=== PATIENT | female | born 1955 | race Caucasian/White ===

== ENCOUNTER 2023-10-21 14:37 | Emergency (ER) | payer OTHER, SELFPAY ==
[2023-10-21 14:39] VITALS: BP 184/97
[2023-10-21 15:07] LABS: % Basophils 0.7 % (0-2); % Eosinophils 1.2 % (0-6); % Immature Granulocytes 0.4 % (0-0.5); % Monocytes 6.5 % (1.7-9.3); % Neutrophils 63.2 % (42.2-75.2); Absolute Basophils 0.1 10^3/uL (0-0.2); Absolute Eosinophils 0.1 10^3/uL (0-0.7); Absolute Lymphocytes 2.3 10^3/uL (1.2-3.4); Absolute Monocytes 0.5 10^3/uL (0.1-0.6); Absolute Neutrophils 5.3 10^3/uL (1.4-6.5); Hematocrit 36.7 % (37.0-47.0); Hemoglobin 12.7 g/dL (12.0-16.0); Mean Corp Hgb Conc. 34.6 g/dL (33.0-37.0); Mean Corpuscular Hgb 31.5 pg (27.0-31.0); Mean Corpuscular Volume 91.1 fL (81.0-99.0); Mean Platelet Volume 9.4 fL (7.4-10.4); Nucleated Red Blood Cells % 0 %; Platelet Count 310 10^3/uL (130-400); Red Blood Cell Count 4.03 10^6/uL (4.20-5.40); Red Cell Dist. Width 13.2 % (11.5-14.5); White Blood Cell Count 8.4 10^3/uL (4.8-10.8)
[2023-10-21 15:27] LABS: ALT (SGPT) 24 U/L (0-35); AST (SGOT) 30 U/L (14-36); Albumin 4.3 g/dl (3.5-5.0); Alkaline Phosphatase 97 U/L (38-126); Blood Urea Nitrogen 21 mg/dl (7-17); Calcium 9.4 mg/dl (8.4-10.2); Carbon Dioxide 25 mmol/L (22-30); Glucose 203 mg/dl (70-99); Total Bilirubin 0.8 mg/dl (0.2-1.3); Total Protein 7.5 g/dl (6.3-8.2); eGFR > 60.00
[2023-10-21 15:30] LABS: Troponin I < 0.012 ng/ml
[2023-10-21 15:38] LABS: Chloride 99 mmol/L (98-107); Sodium 136 mmol/L (135-145)
--- NOTE | 2023-10-21 18:38 | ED.GENMED ---
History of Present Illness
General
Chief Complaint: Chest Pain
Source: patient
Exam Limitations: none
Time Seen by Provider: 10/21/23 17:59
Nursing documentation reviewed up to this point in time: agreed with
Travel History
Have you had any contact with someone who has COVID-19?: No
Do you have any symptoms of coronavirus? Fever > 100 degrees, chills, cough, shortness of breath, sore throat, loss of taste or smell, muscle aches, or headache?: No
History of Present Illness
History of Present Illness:
Patient is a 68-year-old who female with past medical history of hypertension hyperlipidemia [id number] diabetes thyroid issues who was sent here to the ER for evaluation. Patient reports she felt very tired yesterday and went to sleep
early last night at 6:30 PM. She woke at 5:30 AM and around 6 AM today noticed left-sided chest discomfort and felt a little discomfort in her left arm she reports this was not a pain. She had no associated shortness of breath with this. She
denies any injury. She went to her family doctor's office and they told her that her EKG was slightly changed compared to last wrist EKG and they sent her here to the ER.
She has no history of CAD. She was seen by cardiology and had echo in past .
She is currently asymptomatic.
Review of Systems
Review of Systems
Allergies reviewed?: Yes
Other source history: family
All Other Systems: ROS reviewed and negative except as documented in HPI and ROS
Constitutional: Reports no symptoms; Denies fever, fatigue or chills
Respiratory: Reports no symptoms; Denies trouble breathing
Cardiac: Reports chest pain ('discomfort' ); Denies palpitations or syncope
ABD/GI: Reports no symptoms; Denies nausea or vomiting
Musculoskeletal: Reports no symptoms
Skin: Reports no symptoms
Neurological: Reports no symptoms
Psychiatric: Reports no symptoms
Phy Exam
General Physical Exam
General Presentation: no apparent distress
General age: appears stated age
General Skin: warm and dry
General Habitus: normal
General Mental: alert
General Hydration: appears well hydrated
Cardiovascular Exam
Cardiovascular Exam: regular rate/rhythm, no murmur and normal peripheral pulses
Pulmonary Exam
Pulmonary Exam: lungs clear and no respiratory distress
Neurological Exam
Neurological Exam: alert and oriented x3
Musculoskeletal Exam
Musculoskeletal Exam: full ROM
Skin Exam
Skin Exam: normal color and warm/dry
Psychiatric Exam
Psychiatric Exam: normal mood/affect
Scores
Heart Score for Chest Pain Patients
STEMI patient?: Not applicable
Course
Orders/Labs/Results
Orders:
Orders
10/21/23 14:45
Electrocardiogram (*1) Urgent
Reason for Study: Chest Pain
EKG- Treatment ONCE
10/21/23 14:56
Complete Blood Count/With Diff Urgent
Comprehensive Metabolic Panel Urgent
Troponin I Urgent
10/21/23 18:37
CR Chest - 2 Views Urgent
Comment:
Reason For Exam: cp
10/21/23 18:38
Electrocardiogram (*1) Stat
Reason for Study: Other
Other Reason for Exam: chest pain
Cardiac Monitoring- Treatment ONCE
EKG- Treatment ONCE
10/21/23 19:04
Troponin I Urgent
Abnormal Lab Results
10/21/23
14:56
RBC 4.03 L 10^6/uL
(4.20-5.40)
Hct 36.7 L %
(37.0-47.0)
MCH 31.5 H pg
(27.0-31.0)
BUN 21 H mg/dl
(7-17)
Glucose 203 H mg/dl
(70-99)
10/21/23 14:56
10/21/23 14:56
Vital Signs
Initial and Last Documented VS:
Initial Vital Signs
Temp Pulse Resp BP Pulse Ox
98.2 F 94 16 184/97 98
10/21/23 14:39 10/21/23 14:39 10/21/23 14:39 10/21/23 14:39 10/21/23 14:39
Last Documented Vital Signs
Temp Pulse Resp BP Pulse Ox
98.2 F 62 20 147/83 97
10/21/23 14:39 10/21/23 19:03 10/21/23 19:03 10/21/23 19:03 10/21/23 19:03
MDM/Problems Addressed
Differential Diagnosis Includes:
Not limited to CAD, unstable angina, musculoskeletal chest pain
MDM/Problems Addressed:
Patient is a 68-year-old female who presented to the ER for evaluation. She was fatigued yesterday felt mild discomfort to the left chest and left arm today at home not associate with shortness of breath. Patient presents awake alert no acute
distress she has a history of high cholesterol diabetes and hypertension. She presented to the ER awake alert asymptomatic. She was sent initially by her family doctor for questionable EKG change. No acute concerning findings on EKG slight
lateral depression in V5. Patient had 2 cardiac troponins which are negative and remained asymptomatic here in the ER. She is nontoxic well-appearing. She has seen cardiology for echo with history of hypertension in the past that was reviewed and
is unremarkable. Will DC with cardiology follow-up and placed on the chest pain hotline
*Radiology
Radiology exam reviewed: radiology read reviewed
*Pulse Oximetry
Patient hypoxic: no
*EKG
Interpreted by ED Provider?: Yes
Interpretation: abnormal
Comparison EKG: no comparison EKG present
Heart Rate: 75
Rate: normal
Rhythm: sinus
Ischemia: other (Repeat EKG at 1853 no acute findings)
*Critical Care Note
Total Time (30-74mins, 75-104mins- exclusive of procedures): Not Applicable
Data Reviewed
Review of Other/Old Records Reveals: Other (Echo from August 29, 2023 shows normal LV size no regional wall motion ejection fraction 66% no change from 2020)
ED Attending Note
-
Portions of this chart may have been created with voice recognition software.� Occasional wrong word or��sound alike� substitutions may have occurred due to the inherent limitations of voice recognition software.
Discharge Plan
Departure
Patient Disposition: Home (Routine Discharge)
Date of Disposition: 10/21/23
Time of Disposition: 20:08
Patient with high blood pressure during this ER visit?: Yes
Condition: Fair
Covid-19: Not Applicable
Discharge Problem:
Chest pain
Instructions: Chest Pain CBC Follow Up
Prescriptions:
No Action
multivitamin [Daily Multiple] 1 EACH tablet
1 ea PO DAILY
metformin 500 MG tablet
500 mg PO DAILY
simvastatin 10 MG tablet
5 mg PO QPM
aspirin [Aspir-Low] 81 MG tablet,delayed release (DR/EC)
81 mg PO DAILY
levothyroxine 50 MCG tablet
50 mcg PO DAILY
hydrochlorothiazide 25 MG tablet
25 mg PO DAILY
lisinopril 40 MG tablet
40 mg PO QPM
tamoxifen 20 MG tablet
20 mg PO DAILY
omeprazole magnesium [Prilosec OTC] 20 MG tablet,delayed release (DR/EC)
20 mg PO DAILY
omega 4-xdu-kcd-fish oil 1 EACH capsule
1 ea PO BID
Referrals:
Osiris Garcia NP [Family Provider] -
Karrie Torres MD [Active] -
Activity Restrictions/Additional Instructions:
Follow-up with cardiology as discussed. You were placed on the chest pain hotline you should receive a phone call Tuesday or Tuesday however if you do not please give the office a call to schedule an appointment.
Return if any worsening of symptoms
Interventions
Interventions:
*Risk Screen - Suicide Last Done: 10/21/23 14:39
*General Assessment Last Done: 10/21/23 14:39
*Neglect/Abuse Screening Last Done: 10/21/23 14:39
*ED COVID-19 Vaccine History Last Done: 10/21/23 17:38
ED- Cardiac Assessment Last Done: 10/21/23 18:41
[2023-10-21 18:39] VITALS: BP 140/82
[2023-10-21 19:03] VITALS: BP 147/83
[2023-10-21 19:33] LABS: Troponin I < 0.012 ng/ml
== END 2023-10-21 20:17 | disposition home or self-care (01) ==
LOC: EMR 14:37
PROVIDERS: Emergency Medicine; Nurse Practitioner; EMERGENCY PHYSICIAN Emergency Medicine; FAMILY PHYSICIAN Nurse Practitioner Adult Health
DX: R07.89 Other chest pain (principal); R53.83 Other fatigue; I10 Essential (primary) hypertension
CPT/HCPCS: 99285; 71046; 80053; 84484; 85025; 93005

== ENCOUNTER → 2023-11-08 07:11 | Outpatient (REF) | payer OTHER, SELFPAY | LOC: DHCBC/DCA 07:11 | PROVIDERS: ATTENDING PHYSICIAN Nurse Practitioner; FAMILY PHYSICIAN Family Medicine | DX: R07.89 Other chest pain (principal); J44.9 Chronic obstructive pulmonary disease, unspecified; I10 Essential (primary) hypertension | CPT/HCPCS: 78452; 93017; A9500; J2785 ==

== ENCOUNTER 2024-06-08 15:49 | Inpatient (IN) | payer OTHER, SELFPAY ==
[2024-06-08] VITALS (31 sets, daily range): BP systolic 84–122; BP diastolic 53–89; BMI 29.0; BMI 28.4
[2024-06-08 11:50] LABS: % Basophils 0.5 % (0-2); % Eosinophils 0.8 % (0-6); % Immature Granulocytes 0.8 % (0-0.5); % Lymphocytes 14.2 % (20.5-51.1); % Neutrophils 75.7 % (42.2-75.2); Absolute Basophils 0.1 10^3/uL (0-0.2); Absolute Eosinophils 0.1 10^3/uL (0-0.7); Absolute Immature Granulocytes 0.1 10^3/uL (0-0.05); Absolute Lymphocytes 1.9 10^3/uL (1.2-3.4); Absolute Monocytes 1.1 10^3/uL (0.1-0.6); Hemoglobin 12.7 g/dL (12.0-16.0); Mean Corp Hgb Conc. 34.3 g/dL (33.0-37.0); Mean Corpuscular Hgb 30.5 pg (27.0-31.0); Mean Corpuscular Volume 88.7 fL (81.0-99.0); Mean Platelet Volume 9.3 fL (7.4-10.4); Nucleated Red Blood Cells % 0 %; Platelet Count 423 10^3/uL (130-400); Red Blood Cell Count 4.17 10^6/uL (4.20-5.40); Red Cell Dist. Width 13.5 % (11.5-14.5); White Blood Cell Count 13.2 10^3/uL (4.8-10.8)
[2024-06-08 12:05] LABS: ALT (SGPT) 28 U/L (0-35); AST (SGOT) 34 U/L (14-36); Albumin 3.8 g/dl (3.5-5.0); Alkaline Phosphatase 95 U/L (38-126); Blood Urea Nitrogen 30 mg/dl (7-17); Calcium 9.2 mg/dl (8.4-10.2); Carbon Dioxide 26 mmol/L (22-30); Chloride 96 mmol/L (98-107); Glucose 208 mg/dl (70-99); Potassium 3.6 mmol/L (3.5-5.1); Sodium 136 mmol/L (135-145); Total Bilirubin 0.6 mg/dl (0.2-1.3); Total Protein 6.8 g/dl (6.3-8.2); eGFR > 60.00
--- NOTE | 2024-06-08 12:15 | EDRN ---
Pt states she arrives sent by PCP for palpitations. Pt is in rapid A Fib w/ RVR and rate fro 120-150 at this time. Pt states she is feeling chest pain, fatigue (can't keep eyes open), stabbing pain in her back, nausea, SOB, and lightheaded. Pt
states symptoms started Tuesday. Pt is not on blood thinners.
[2024-06-08 12:16] LABS: Troponin I < 0.012 ng/ml
--- NOTE | 2024-06-08 12:30 | EDRN ---
This RN spoke to Dr. Collins at this time about pt's rate and symptoms.
--- NOTE | 2024-06-08 12:46 | ED.GENMED ---
History of Present Illness
General
Chief Complaint: Chest Pain
Source: patient
Exam Limitations: none
Time Seen by Provider: 06/08/24 12:45
Nursing documentation reviewed up to this point in time: agreed with
History of Present Illness
History of Present Illness:
Patient presents to ED secondary to 3-day history of persistent chest pain, back pain, shortness of breath, and nausea sensation. Chest pain and back pain described as stabbing, without any alleviating or exacerbating factors. Denies palpitations.
Patient reports mild dizzy sensation. Denies fever or chills. Denies recent illness. Denies recent change in medications or diet. Denies leg pain or swelling. Denies recent travel. Denies recent surgery. Upon arrival, patient is found to be
in rapid atrial fibrillation, which patient has not had previously. Denies family history of heart disease. Denies family history of blood clots. Of note, patient does state that she does not drink enough water daily.
Review of Systems
Review of Systems
Allergies reviewed?: Yes
All Other Systems: ROS reviewed and negative except as documented in HPI and ROS
Constitutional: Reports no symptoms
EENT: Reports no symptoms
Respiratory: Reports trouble breathing
Cardiac: Reports chest pain
ABD/GI: Reports no symptoms
: Reports no symptoms
Musculoskeletal: Reports no symptoms
Skin: Reports no symptoms
Neurological: Reports dizzy
Phy Exam
Physical Exam
Physical Exam:
Physical Exam
General: mild distress, not acutely ill. afebrile. tachycardic.
Head: nc/at. eomi
Neck: supple. no meningeal signs.
Heart: irregularly irregular, tachycardic, no murmur. equal radial pulses.
Lungs: no acute respiratory distress. clear bilaterally
Abdomen: normal bowel sounds. not tender.
Neuro: alert and oriented. no focal neurological deficits
Skin: no rash
Psychiatric: well kept. interactive and cooperative
Extremities: no edema. no calf tenderness.
Scores
Heart Score for Chest Pain Patients
STEMI patient?: Not applicable
Course
Orders/Labs/Results
Orders:
Orders
06/08/24 11:30
Electrocardiogram (*1) Urgent
Reason for Study: Chest Pain
EKG- Treatment ONCE
06/08/24 11:40
Complete Blood Count/With Diff Urgent
Comprehensive Metabolic Panel Urgent
Magnesium Urgent
TSH Reflex To Free T4 Urgent
Comment: ADD ON
Troponin I Urgent
06/08/24 12:55
Add On- LAB Urgent
Comments:: tube in lab.
Tests Added?: PTT
06/08/24 12:56
0.9% Sodium Chloride 1000 ml [Nss] 1,000 ml IV BOLUS
Diltiazem HCl [Cardizem] 10 mg IV NOW STA
06/08/24 13:00
Diltiazem 125 mg/125 ml Nss [Cardizem] 125 mg in 125 ml IV PER PROTOCOL
Initial dose in mg/hr, then titrate:: 5
Titrate to keep:: Heart rate 80-100 bpm
Titrate by mg/hr:: 5 mg/hr
Frequency of titrations (minutes):: 15
Maximum dose in mg/hr:: 15
06/08/24 13:05
D-Dimer Urgent
06/08/24 15:03
Heparin 5,800 units IV NOW STA
Nursing to Place Non Medication Order As Directed
Physician Order: PTT 6 hours after initial start of Heparin infusion
Above order entered?: Yes
06/08/24 15:15
Heparin 90899 Units/250 ml 25,000 units in 250 ml IV PER PROTOCOL
Weight to be used for heparin protocol in kilograms (kg):: 71.9
Protocol:: DVT/PE
PTT Goal Range to be used:: PTT 73 to 111 seconds
Order type:: Initial
INITIAL Infusion Dose (UNITS/KG/hr) & then follow protocol:: 18 units/kg/hr
Infusion Dose in UNITS/hr & then follow protocol (UNITS/hr):: 1,300
INFUSION RATE in mL/hr & then follow protocol (mL/hr):: 13
For DVT/PE algorithm, re-bolus for low PTT?: Yes
PTT less than or equal to 64 seconds:: Re-bolus 80 units/kg (max 10,000units). Increase by 300 units/hr
(+ 3mL/hr)
PTT 64.1 to 72.9 seconds:: Re-bolus 40 units/kg (max 5,000 units). Increase by 100 units/hr
(+ 1mL/hr)
PTT 73 to 111 seconds:: Target Range. No change in rate.
PTT 111.1 to 130.9 seconds:: Decrease rate by 100 units/hr (- 1 mL/hr)
PTT 131 to 199.9 seconds:: HOLD for 1 hr. Then decrease by 200 units/hr (- 2mL/hr)
PTT greater than or equal to 200 seconds:: HOLD for 2 hrs & Notify Provider. Then decrease by 300 units/hr
(- 3mL/hr)
Lab follow-up:: Each change, PTT q6h until 2 consecutive are therapeutic. Then
PTT daily.
06/08/24 15:16
Heparin 96953 Units/250 ml 25,000 units in 250 ml .ROUTE .STK-MED
06/08/24 15:18
Heparin 5,800 units IV PRN PRN
06/08/24 15:19
Heparin 2,900 units IV PRN PRN
06/08/24 15:39
Admit/Transfer Patient As Directed
Co-Sign Provider:
Level of Care: Inpatient admission
Assign to:: IVU
Physician / Group: alvaro
Diagnosis: afib rvr
Reason for Hospitalization: afib rvr
Expected length of stay greater than two midnights?: Yes
ELOS- Estimated Length of Stay in days: 2
I certify the patient meets the requirements for IP care: Yes
Chest PE Study CT [CT Chest Pe Study] Urgent
Comment:
Reason For Exam: pleurtitic chest pain
PRN Pain Medication Management As Directed
May give lesser potent ordered pain med per pt: Yes
preference::
Protocol:: Medication orders for pain may be administered in a
manner that supports deferring to patient preference
when the pt is:
- Requesting an ordered lesser potent pain medication.
Least to most potent pain medications are defined
as: acetaminophen < NSAID < tramadol < opioids
(morphine, oxycodone, hydromorphone).
- Requesting a lesser dose of the same medication IF
ORDERED.
- Requesting a less intrusive route of administration
if both routes are prescribed by the provider (PO <
IV).
06/08/24 15:40
Code Status As Directed
Resuscitation Status: Full Code
Abnormal Lab Results
06/08/24 06/08/24
11:40 13:05
WBC 13.2 H 10^3/uL
(4.8-10.8)
RBC 4.17 L 10^6/uL
(4.20-5.40)
Plt Count 423 H 10^3/uL
(130-400)
Abs Immat Gran (auto) 0.1 H 10^3/uL
(0-0.05)
Absolute Neuts (auto) 10.0 H 10^3/uL
(1.4-6.5)
Absolute Monos (auto) 1.1 H 10^3/uL
(0.1-0.6)
Immature Gran % 0.8 H %
(0-0.5)
Neutrophils % 75.7 H %
(42.2-75.2)
Lymphocytes % 14.2 L %
(20.5-51.1)
D-Dimer 0.61 H ug/mlFEU
(0.00-0.50)
Chloride 96 L mmol/L
(98-107)
BUN 30 H mg/dl
(7-17)
Glucose 208 H mg/dl
(70-99)
Magnesium 2.4 H mg/dl
(1.6-2.3)
06/08/24 11:40
06/08/24 11:40
Vital Signs
Initial and Last Documented VS:
Initial Vital Signs
Temp Pulse Resp BP Pulse Ox
97.8 F 82 16 121/68 98
06/08/24 11:44 06/08/24 11:44 06/08/24 11:44 06/08/24 11:44 06/08/24 11:44
Last Documented Vital Signs
Temp Pulse Resp BP Pulse Ox
97.8 F 83 32 122/61 93
06/08/24 11:44 06/08/24 18:45 06/08/24 18:45 06/08/24 18:45 06/08/24 18:00
MDM/Problems Addressed
MDM/Problems Addressed:
History, exam, and EKG consistent with new onset rapid atrial fibrillation. Patient started on IV fluids, Cardizem bolus and infusion afterwards, with improved heart rate. After heart rate improvement, patient does report decreased chest pain, but
is still ongoing.
D-dimer reviewed, within normal limits, when age-adjusted.
Discussed with , cardiology. Will patient under hospitalist service on cardizem gtt and heparin protocol.
Critical care statement: A total of 40 minutes of critical care time was provided for this patient. This includes management of unstable vital signs, evaluation of the patient at bedside, reviewing the patient's pertinent medical records, discussion
with consultants, review of old EKGs and review of pertinent medical records. This time with separate from time utilized to perform the aforementioned documented procedures
*EKG
Interpreted by ED Provider?: Yes
EKG Intrepretation Date: 06/08/24
Heart Rate: 135
Rate: tachycardiac
Rhythm: a-fib
[place]: normal axis
*Critical Care Note
Total Time (30-74mins, 75-104mins- exclusive of procedures): 40 min
ED Attending Note
-
Portions of this chart may have been created with voice recognition software.� Occasional wrong word or��sound alike� substitutions may have occurred due to the inherent limitations of voice recognition software.
Discharge Plan
Departure
Patient Disposition: Admit
Date of Disposition: 06/08/24
Time of Disposition: 15:09
Admit to: Telemetry
Presentation/result/management discussed w/ accepting MD/DO: Hospitalist
Discharge Problem:
Atrial fibrillation, rapid, Chest pain
Interventions
Interventions:
*Risk Screen - Suicide Last Done: 06/08/24 11:44
*General Assessment Last Done: 06/08/24 11:44
*Neglect/Abuse Screening Last Done: 06/08/24 11:44
ED- Fall Risk Assessment Last Done: 06/08/24 12:20
*ED COVID-19 Vaccine History Last Done: 06/08/24 12:20
ED- Cardiac Assessment Last Done: 06/08/24 12:20
ED- Pulmonary Assessment Last Done: 06/08/24 12:20
--- NOTE | 2024-06-08 12:50 | EDRN ---
Dr. Hodgson in room w/ pt at this time.
[2024-06-08] MEDS: NSS 1000 IV (13:07)
[2024-06-08 13:29] LABS: Magnesium 2.4 mg/dl (1.6-2.3)
[2024-06-08] MEDS: CARDIZEM 10 MG IV (13:51)
[2024-06-08] MEDS: CARDIZEM 125 IV ×2 (13:52→21:56)
[2024-06-08 14:16] LABS: D-Dimer 0.61 ug/mlFEU (0.00-0.50)
[2024-06-08 14:20] LABS: TSH Reflex To Free T4 1.62 uIU/ml (0.47-4.68)
--- NOTE | 2024-06-08 15:05 | EDRN ---
Dr. Hodgson in room w/pt at this time.
--- NOTE | 2024-06-08 15:25 | EDRN ---
Benita Jefferson w/ cardiology in to see pt.
--- NOTE | 2024-06-08 15:30 | EDRN ---
Dr. Phillips in to see pt.
[2024-06-08] MEDS: HEPARIN 5800 UNITS IV (15:38)
--- NOTE | 2024-06-08 15:38 | CON.CAR ---
Addendum entered and electronically signed by Floyd Dumont MD 06/08/24 17:16:
Patient seen and examined in collaboration with H[employer]ANE OPERATOR; agree with below.
-68-year-old female with hypertension, hyperlipidemia, diabetes, and COPD presenting with chest pain; found to be in atrial fibrillation with RVR.
-The patient's chest pain appears to be atypical (pleuritic).
-Check chest x-ray.
-Trend cardiac enzymes.
-Heparin drip for now; transition to NOAC prior to discharge.
-Continue Cardizem drip.
-Likely repeat echocardiogram as outpatient, if patient converts back to sinus rhythm over the weekend.
-telemetry monitor.
-Will reassess tomorrow.
Original Note:
Consultation
Consultation Request
Date/Time Consultation Requested: 06/08/2024 15:00
Date/Time Consultation Performed: 06/08/2024 15:10
Requesting Provider: Dr. Hodgson
Performing Provider: BERNABE Durán for Dr. Dumont
Reason for Consultation: Atrial fibrillation with rapid ventricular response
Medical History
-
Chief Complaint: Chest pain
History of Present Illness:
Cheryl Bledsoe is a 68-year-old female (formerly known to Dr. Prince, known to her primary lawn care professional Dr. Torres), with hypertension, dyslipidemia, mild mitral regurgitation with posterior mitral leaflet prolapse, mild to moderate tricuspid
regurgitation, NIDDM, COPD, hypothyroidism, and left breast cancer status postlumpectomy who presented to the emergency department with a chief complaint of chest pain. This has been persistent since Tuesday. It is her left-sided chest and
radiates into her back (scapula). She reports associated shortness of breath. It gets worse with deep breaths and coughing. She denied palpitations and the sensation of racing heart. She was found to be in atrial fibrillation with rapid
ventricular response. This is a new diagnosis for her. Cardiology has been consulted for atrial fibrillation management.
Past Medical History
Past Medical History: Cancer (Breast [left]), HTN, Hypercholesterolemia, Hypothyroidism, NIDDM and Valvular Disease (Tricuspid regurgitation, mild mitral regurgitation with posterior leaflet prolapse)
Social History
Tobacco: Non-Smoker
Alcohol: None
Drug: None
Family History
Family History: Reviewed & Not Pertinent
Allergies / Home Medications
Allergy/AdvReac Type Severity Reaction Status Date / Time
sulfamethoxazole Allergy Rash Verified 10/21/23 14:39
[From Bactrim]
trimethoprim [From Bactrim] Allergy Rash Verified 10/21/23 14:39
�Medication �Instructions �Recorded �Confirmed �Type
hydrochlorothiazide 25 mg tablet 25 mg PO DAILY 04/26/14 06/08/24 History
lisinopril 40 mg tablet 40 mg PO QPM 04/26/14 06/08/24 History
metformin 500 mg tablet 500 mg PO DAILY 04/26/14 06/08/24 History
omega 3-nrw-xjw-fish oil 250 1 ea PO BID 04/29/14 06/08/24 History
mg-500 mg-1,000 mg capsule
albuterol sulfate 90 mcg/actuation 2 inh inhalation R Q6HPRN PRN SOB 06/08/24 06/08/24 History
aerosol inhaler
aspirin 81 mg tablet,delayed 81 mg PO DAILY 06/08/24 06/08/24 History
release
budesonide 160 mcg-glycopyr 9 2 inh inhalation R DAILY 06/08/24 06/08/24 History
mcg-formot 4.8 mcg/actuation HFA
inhaler (Breztri Aerosphere)
glipizide 5 mg tablet, extended 5 mg PO DAILY 06/08/24 06/08/24 History
release 24 hr
levothyroxine 75 mcg tablet 75 mcg PO DAILY 06/08/24 06/08/24 History
(Synthroid)
rosuvastatin 5 mg tablet (Crestor) 5 mg PO DAILY 06/08/24 06/08/24 History
therapeutic multivitamin 1 tab PO DAILY 06/08/24 06/08/24 History
Review of Systems
-
History Source: Patient
All other systems: Negative unless noted
Constitutional: Fatigue
EENT: No Symptoms
Respiratory: Cough
Cardiac: Chest Pain
Abdomen/GI: No Symptoms
: No Symptoms
Musculoskeletal: No Symptoms
Skin: No Symptoms
Neurological: No Symptoms
Endocrine: No Symptoms
Hematologic/Lymphatic: No Symptoms
Physical Exam
Vital Signs
Temp Pulse Resp BP Pulse Ox
97.8 F 109 31 113/72 94
06/08/24 11:44 06/08/24 15:00 06/08/24 15:00 06/08/24 15:00 06/08/24 15:00
Lab Results
06/08/24 11:40
06/08/24 11:40
Troponin I < 0.012 ng/ml 06/08/24 11:40
Physical Exam
General: Well Developed, Well Nourished, No Apparent Distress and Comfortable
HEENT: Normocephalic, Anicteric and Moist Mucous Membranes
Respiratory: Clear and Non Labored Respirations
Cardiac: S1/S2 and Irregular Rhythm; Negative Peripheral Edema
Breast: Deferred by me
GI: Soft, Non Tender, Non Distended and Normal Bowel Sounds
Rectal: Deferred by Provider
Genito-urinary: No Costovertebral Tender
Musculoskeletal: No Clubbing, No Cyanosis and No Edema
Skin: Warm and Dry
Neuro: AO x 3
Hematologic/Lymphatic: No Lymphadenopathy
Psych: Calm
Impression / Plan
-
BACKGROUND: 68F hypertension, dyslipidemia, mild mitral regurgitation with posterior mitral leaflet prolapse, mild to moderate tricuspid regurgitation, NIDDM, COPD, hypothyroidism, and left breast cancer status postlumpectomy who presented to the
emergency department with a chief complaint of chest pain. She was found to be in AF with RVR.
Steel Fabricator: Dr. Torres
PLAN:
Atrial fibrillation with RVR, new
-Rate control with diltiazem drip
-Oral Anticoagulation: Start heparin drip, transition to apixaban 5 mg twice daily and stop aspirin
-[id number]: score at least 4 (HTN, Diabetes Mellitus, age 65-74, female gender)
-TSH stable
Chest pain
-Worse with cough, hiccups, and movement
-CT PE ordered by primary
Mild mitral regurgitation with posterior mitral leaflet prolapse
-Stable on two most recent echos
Tricuspid regurgitation, mild to moderate
Hypertension, follow BP while on diltiazem drip
COPD, no acute exacerbation, avoiding beta-edi, per primary
NIDDM, per primary
Hypothyroidism on levothyroxine
Breast cancer status post lumpectomy/XRT
SUBJECTIVE: See ROS
DATA:
Transthoracic echocardiogram, 08/29/2023:
Normal LV size and systolic function with no regional wall motion
abnormalities.
Left ventricular ejection fraction is 66% by volumetric assessment.
No left ventricular hypertrophy.
Normal right ventricular size and function.
Prolapse of the posterior mitral leaflet. Mild mitral regurgitation.
Mild to moderate tricuspid regurgitation.
Estimated pulmonary artery pressure of 38 mmHg, assuming a right atrial
pressure of 3 mmHg.
Compared to prior on February 03, 2021, there is no significant change.
Data Reviewed
-
EKG: Report Reviewed by me (Atrial fibrillation with rapid regular response, rate 135 bpm)
Medical Tests (Nuc Med, Echo etc): Report Reviewed by me (Prior echocardiogram as above)
Labs: Labs Reviewed by me
Old Records: Reviewed
[2024-06-08] MEDS: HEPARIN 25000 UNITS/250 ML IV (15:39)
--- NOTE | 2024-06-08 15:44 | HPS.HSE ---
Family Physician
-
Family Physician: Gi Gamez
Chief Complaint
-
chest pain/back pain, shortness of breath
History of Present Illness
68-year-old female past medical history of COPD, GERD, hypertension, hypercholesteremia, migraines, breast cancer status postlumpectomy/radiation, hypothyroidism, diabetes, presenting with chest, back pain worse with breathing and shortness of
breath and nausea for the past 2 days. Chest pain and back pain are described as stabbing without alleviating or exacerbating factors. Patient does have slight cough and did have a fever 101 yesterday. Denies palpitations. He reports mild
dizziness. Denies fevers or chills. Denies leg swelling. No recent long car rides or travel. No recent surgeries.
She has multiple family members with history of high blood pressure.
Medical History
Past Medical History
Past Medical History: Reports Other (COPD, GERD, hypertension, hypercholesteremia, migraines, breast cancer status postlumpectomy/radiation, hypothyroidism, diabetes)
Past Surgical History: Reports None
Social History
Tobacco: Non-smoker
Alcohol: None
Drug: None
Family History
Family History: Not pertinent
Allergies / Home Medications
Allergies reflects when Allergies were last updated in [facility].
Home Medications with original date entered in [facility]
Allergy/Medication List:
Allergies
Allergy/AdvReac Type Severity Reaction Status Date / Time
sulfamethoxazole Allergy Rash Verified 10/21/23 14:39
[From Bactrim]
trimethoprim [From Bactrim] Allergy Rash Verified 10/21/23 14:39
Home Medications
hydrochlorothiazide 25 mg tablet 25 mg PO DAILY 04/26/14
lisinopril 40 mg tablet 40 mg PO QPM 04/26/14
metformin 500 mg tablet 500 mg PO DAILY 04/26/14
omega 6-bdk-bsx-fish oil 250 mg-500 mg-1,000 mg capsule 1 ea PO BID 04/29/14
albuterol sulfate 90 mcg/actuation aerosol inhaler 2 inh inhalation R Q6HPRN PRN SOB 06/08/24
aspirin 81 mg tablet,delayed release 81 mg PO DAILY 06/08/24
budesonide 160 mcg-glycopyr 9 mcg-formot 4.8 mcg/actuation HFA inhaler (Breztri Aerosphere) 2 inh inhalation R DAILY 06/08/24
glipizide 5 mg tablet, extended release 24 hr 5 mg PO DAILY 06/08/24
levothyroxine 75 mcg tablet (Synthroid) 75 mcg PO DAILY 06/08/24
rosuvastatin 5 mg tablet (Crestor) 5 mg PO DAILY 06/08/24
therapeutic multivitamin 1 tab PO DAILY 06/08/24
Review of Systems
-
History Source: Patient
A 12 point ROS was completed and negative except as noted: Yes
Constitutional: Reports No Symptoms
EENT: Reports No Symptoms
Respiratory: Reports See HPI
Cardiac: Reports See HPI
Abdomen/GI: Reports No Symptoms
: Reports No Symptoms
Musculoskeletal: Reports No Symptoms
Skin: Reports No Symptoms
Neurological: Reports No Symptoms
Endocrine: Reports No Symptoms
Hematologic/Lymphatic: Reports No Symptoms
Psych: Reports No Symptoms
Physical Exam
Vital Signs
Vital Signs
Temp Pulse Resp BP Pulse Ox
97.8 F 109 31 113/72 94
06/08/24 11:44 06/08/24 15:00 06/08/24 15:00 06/08/24 15:00 06/08/24 15:00
Physical Exam
General: Well Developed, Well Nourished and No Apparent Distress
HEENT: NormoCephalic, Moist mucous membranes and Atraumatic
Respiratory: Clear
Cardiac: S1/S2 and Regular Rhythm; No Murmur or Rub
GI: Soft, Non Tender, Non Distended and Normal Bowel Sounds; No Organomegaly
Rectal: Deferred by Provider
Musculoskeletal: No Clubbing, No Cyanosis and No Edema
Skin: No Rash
Neuro: Nonfocal/grossly intact
Laboratory Results
-
06/08/24 11:40
06/08/24 11:40
Laboratory Results
APTT Cancelled 06/08/24 15:03
Total Bilirubin 0.6 mg/dl (0.2-1.3) 06/08/24 11:40
AST 34 U/L (14-36) 06/08/24 11:40
ALT 28 U/L (0-35) 06/08/24 11:40
Alkaline Phosphatase 95 U/L (38-126) 06/08/24 11:40
Troponin I < 0.012 ng/ml 06/08/24 11:40
Data Reviewed
-
Lab Data: Labs Reviewed by me
Old Records: Reviewed
Impression/Plan
-
IMPRESSION:
PLAN:
# New onset atrial fibrillation with RVR
-EKG shows atrial fibrillation with RVR with heart rate of 135
-IV fluids given
-Cardizem drip
-Heparin drip, discontinue aspirin
-Check TSH, echo
-Check CT PE due to pleuritic chest pain/fever and cough and history of breast cancer
-Cardiology consulted
Essential hypertension
-Continue lisinopril
-Hold hydrochlorothiazide
COPD
-Never smoked however
GERD
-Continue omeprazole
Hypercholesterolemia
-Continue statin
History of migraines
Breast cancer status post lumpectomy/radiation
-Continue tamoxifen
Hypothyroidism
-Continue levothyroxine
Type 2 diabetes
-Hold glipizide, metformin
-Insulin sliding scale
Full code
DVT prophylaxis�heparin drip
Regular diet
--- NOTE | 2024-06-08 15:55 | EDRN ---
Dr. See in to see pt.
[2024-06-08] MEDS: NOVOLOG FLEXPEN-LOW RESISTANCE SC (19:45)
[2024-06-08] MEDS: ZESTRIL 40 MG PO (19:49)
[2024-06-08] MEDS: SYMBICORT 160/4.5 MCG INHALER 2 PUFF INH (20:12)
[2024-06-08] MEDS: TYLENOL 650 MG PO (21:17)
[2024-06-08 22:04] LABS: APTT 88.9 Sec (23.4-35.0)
[2024-06-08 22:37] LABS: Glucose - Point of Care 178 mg/dl (70-99)
--- NOTE | 2024-06-09 00:27 | PTCARENOTE ---
Pt. received from ED at change of shift. Pt. here for Afib RVR on heparin gtt and cardizem gtt. No complaints of CP or SOB at the moment, complaining of a 4/10 headache, given tylenol. VS WNL tele reading Afib in the 80s-90s. Around 2240, patient
appearing to be NSR on tele monitor, 12-lead EKG conducted reading NSR with PACs. RN explains plan of care, pt. verbalizes understanding. Call reyes within reach. Continuing to monitor at this time.
[2024-06-09 03:53] VITALS: BP 95/63
[2024-06-09 04:24] LABS: % Basophils 0.6 % (0-2); % Eosinophils 2.7 % (0-6); % Immature Granulocytes 0.9 % (0-0.5); % Lymphocytes 18.9 % (20.5-51.1); % Monocytes 9.3 % (1.7-9.3); % Neutrophils 67.6 % (42.2-75.2); Absolute Basophils 0.1 10^3/uL (0-0.2); Absolute Eosinophils 0.3 10^3/uL (0-0.7); Absolute Immature Granulocytes 0.1 10^3/uL (0-0.05); Absolute Lymphocytes 2.4 10^3/uL (1.2-3.4); Absolute Monocytes 1.2 10^3/uL (0.1-0.6); Absolute Neutrophils 8.7 10^3/uL (1.4-6.5); Hematocrit 33.2 % (37.0-47.0); Hemoglobin 11.6 g/dL (12.0-16.0); Mean Corp Hgb Conc. 34.9 g/dL (33.0-37.0); Mean Corpuscular Hgb 30.6 pg (27.0-31.0); Mean Corpuscular Volume 87.6 fL (81.0-99.0); Mean Platelet Volume 9.4 fL (7.4-10.4); Nucleated Red Blood Cells % 0 %; Platelet Count 388 10^3/uL (130-400); Red Blood Cell Count 3.79 10^6/uL (4.20-5.40); Red Cell Dist. Width 13.4 % (11.5-14.5); White Blood Cell Count 12.8 10^3/uL (4.8-10.8)
[2024-06-09 04:36] LABS: APTT 131.4 Sec (23.4-35.0)
[2024-06-09 04:43] LABS: ALT (SGPT) 26 U/L (0-35); AST (SGOT) 31 U/L (14-36); Albumin 3.4 g/dl (3.5-5.0); Alkaline Phosphatase 81 U/L (38-126); Blood Urea Nitrogen 22 mg/dl (7-17); Calcium 8.8 mg/dl (8.4-10.2); Carbon Dioxide 21 mmol/L (22-30); Chloride 102 mmol/L (98-107); Estimated Creatinine Clearance 61 ml/min; Glucose 163 mg/dl (70-99); Potassium 3.7 mmol/L (3.5-5.1); Sodium 138 mmol/L (135-145); Total Bilirubin 0.8 mg/dl (0.2-1.3); Total Protein 6.4 g/dl (6.3-8.2); eGFR > 60.00
[2024-06-09] MEDS: SYNTHROID 75 MCG PO (05:01)
--- NOTE | 2024-06-09 06:44 | W.PN.HOSP.TC ---
Addendum entered and electronically signed by Antionette Lloyd MD 06/09/24 14:22:
Addendum
Patient was seen by plumber cub. Discussed with patient and okay for discharge. Patient wants to go home. Discussed discharge planning with patient and her daughter in the room. product manager medical device was involved in discharge planning including Eliquis
prescription. Patient reported feeling better and resolution of chest discomfort and shortness of breath. She remains in sinus rhythm and well-controlled heart rate.
She was counseled regarding new medication including Eliquis and potential side effects of systemic anticoagulation, she verbalized understanding.
Total time spent to see the patient on the floor, examine the patient, review data and lab results, discuss treatment plan with patient and her daughter, plumber cub, supervisor case loading, nursing staff around 69 minutes
Original Note:
Today's Communication/Plan
-
f/w cardiology recommendations
Assessment / Plan
Assessment / Plan
Physical Exam
General: Well Developed, Well Nourished and No Apparent Distress
HEENT: Normocephalic, Moist mucous membranes and Atraumatic
Respiratory: Clear
Cardiac: S1/S2 and Regular Rhythm; + Murmur
GI: Soft, Non Tender, Non Distended and Normal Bowel Sounds; No Organomegaly
Rectal: no bleeding
Musculoskeletal: No Clubbing, No Cyanosis and No Edema
Skin: No Rash
Neuro: Nonfocal/grossly intact
Psych: calm
# New onset paroxysmal atrial fibrillation with RVR
-EKG shows atrial fibrillation with RVR with heart rate of 135
- s/p IV fluids, Cardizem drip, can switch to ral Cardizem
-Heparin drip, discontinue aspirin
-Normal TSH, echo
-Cardiology consulted
# Leukocytosis, reactive
No fevers
Essential hypertension
-Continue lisinopril
-Held hydrochlorothiazide
COPD
-Never smoked however
GERD
-Continue omeprazole
Hypercholesterolemia
-Continue statin
History of migraines
Breast cancer status post lumpectomy/radiation
-Continue tamoxifen
Hypothyroidism
-Continue levothyroxine
Type 2 diabetes
-Hold glipizide, metformin
-Insulin sliding scale
Full code
DVT prophylaxis�heparin drip
Regular diet
Total time spent to see the patient on the floor, examine the patient, review data and lab results, discuss treatment plan with patient, nursing staff around 55 minutes
Anticipated Discharge: Within 24 hours
Subjective/Interval History
-
Date of Service: June 09, 2024
No chest pain
No sob
Objective Data
-
Labs:
Laboratory Results
06/08/24 06/09/24
21:39 04:06
WBC 12.8 H
Hgb 11.6 L
Hct 33.2 L
Plt Count 388
APTT 88.9 H 131.4 H
Sodium 138
Potassium 3.7
Chloride 102
Carbon Dioxide 21 L
BUN 22 H
Creatinine 0.8
Glucose 163 H
Calcium 8.8
Total Bilirubin 0.8
AST 31
ALT 26
Alkaline Phosphatase 81
Vital Signs:
Vital Signs
Temp Pulse Resp BP Pulse Ox
98.9 F 68 20 95/63 93
06/09/24 03:53 06/09/24 05:00 06/08/24 22:54 06/09/24 03:53 06/09/24 03:53
I&O
06/07/24 06/08/24 06/09/24
06:59 06:59 06:59
Intake Total 220 / 220
Balance 220 / 220
--- NOTE | 2024-06-09 07:30 | PTCARENOTE ---
Assumed care of pt from prev nsg shift; Pt AAOx3 w/no c/o CP or SOB. Pt w/IV Heparin & IV Cardizem infusing through patent IV lines as ordered. Pt w/VS stable w/HR in the 70's & BP this AM 104/62. Pt is SR on telemetry monitoring. Pt given Afib book
& plan of care discussed w/pt. Pt w/call reyes within reach & plan of care ongoing.
[2024-06-09] MEDS: SPIRIVA RESPIMAT 2.5 MCG 2 PUFF INH (07:49)
[2024-06-09] MEDS: SYMBICORT 160/4.5 MCG INHALER 2 PUFF INH (07:49)
[2024-06-09 07:51] VITALS: BP 104/62
[2024-06-09] MEDS: THERAGRAN 1 TABLET PO (08:57)
[2024-06-09] MEDS: CRESTOR 5 MG PO (08:57)
[2024-06-09] MEDS: NOVOLOG FLEXPEN-LOW RESISTANCE 1 UNITS SC ×2 (08:58→12:26)
--- NOTE | 2024-06-09 09:08 | W.PN.CD ---
Today's Communication / Plan
-
- Stop Heparin
- Start Eliquis
- Switch IV dilt to PO 180 mg QD
- Plan for ECHO and stress test as outpatient.
Impression / Plan
-
BACKGROUND: 68F hypertension, dyslipidemia, mild mitral regurgitation with posterior mitral leaflet prolapse, mild to moderate tricuspid regurgitation, NIDDM, COPD, hypothyroidism, and left breast cancer status postlumpectomy who presented to the
emergency department with a chief complaint of chest pain. She was found to be in AF with RVR.
Lead Massage Therapist: Dr. Torres
PLAN:
Atrial fibrillation with RVR, new
-Converted to sinus last night
- No conversion pause.
-Oral Anticoagulation: Stop heparin drip, transition to apixaban 5 mg twice daily and stop aspirin
-[id number]: score at least 4 (HTN, Diabetes Mellitus, age 65-74, female gender)
-TSH stable
- Start Diltiazem 180 mg QD
- ECHO as outpatient.
Chest pain
-Worse with cough, hiccups, and movement
-CT PE -ve
- Trop -ve x 3.
- Cath 2013 - no significant CAD
- ECHO 2023 - LVEF 60%
- Plan for stress test as outpatient.
Mild mitral regurgitation with posterior mitral leaflet prolapse
-Stable on two most recent echos
Tricuspid regurgitation, mild to moderate
Hypertension, follow BP while on diltiazem drip
COPD, no acute exacerbation, avoiding beta-edi, per primary
NIDDM, per primary
Hypothyroidism on levothyroxine
Breast cancer status post lumpectomy/XRT
SUBJECTIVE:
Feeling better.
Chest pain resolved.
DATA:
Transthoracic echocardiogram, 08/29/2023:
Normal LV size and systolic function with no regional wall motion
abnormalities.
Left ventricular ejection fraction is 66% by volumetric assessment.
No left ventricular hypertrophy.
Normal right ventricular size and function.
Prolapse of the posterior mitral leaflet. Mild mitral regurgitation.
Mild to moderate tricuspid regurgitation.
Estimated pulmonary artery pressure of 38 mmHg, assuming a right atrial
pressure of 3 mmHg.
Compared to prior on February 03, 2021, there is no significant change.
Physical Exam
Vital Signs/Labs
Vital Signs
Temp Pulse Resp BP Pulse Ox
98.9 F 74 14 104/62 94
06/09/24 03:53 06/09/24 08:30 06/09/24 07:50 06/09/24 07:51 06/09/24 07:50
06/08/24 06/09/24 06/10/24
06:59 06:59 06:59
Actual Weight 70.3 kg
06/09/24 04:06
06/09/24 04:06
APTT 131.4 Sec (23.4-35.0) H 06/09/24 04:06
Magnesium 2.4 mg/dl (1.6-2.3) H 06/08/24 11:40
LAB Results
06/08/24
11:40
Troponin I < 0.012
Physical Exam
Constitutional: No acute distress and Comfortable
EENT: Anicteric and Moist mucous membranes
Cardiovascular: Rhythm & rate is regular, JVD pressure is normal and Systolic murmur absent
Respiratory: Respiratory effort normal, Lungs clear to auscul. and Wheeze Absent
GI: Soft, Non tender and Normal bowel sounds
Neuro/Psych: Alert, Oriented, AO x 3 and Motor deficits absent
Data Reviewed
-
Date of Service: June 09, 2024
Medical Decision Making: Reviewed Test Results, Independent Historian Assessment, Test Interpretation and Review of Case with other Provider
EKG: Tracing Personally Visualized and interpreted
Echo: Report Reviewed by me
Labs: Labs Reviewed by me
Old Records: Reviewed
[2024-06-09] MEDS: ELIQUIS 5 MG PO (09:40)
[2024-06-09 11:50] VITALS: BP 108/59
[2024-06-09 11:53] LABS: Glucose - Point of Care 189 mg/dl (70-99)
[2024-06-09] MEDS: CARDIZEM CD 180 MG PO (13:51)
--- NOTE | 2024-06-09 14:17 | W.DCSUMMARY ---
Discharge Summary
Discharge Data
Date of Admission: 06/08/24
Date of Discharge: 06/09/24
-
Pending Results: No
Hospital Course
68-year-old female who presented with chest pain. She was found to be in atrial fibrillation with rapid ventricular response. Patient reported history of shortness of breath. Scan of the chest did not show pulmonary embolism. Patient was started
on intravenous Cardizem. Troponin was negative. [id number]: score at least 4 (HTN, Diabetes Mellitus, age 65-74, female gender). Patient was started on intravenous heparin. EKG did not show acute ischemic changes. She converted to sinus rhythm
overnight. Patient was evaluated by visual merchandising coordinator. Recommended to start the patient on Eliquis and oral Cardizem. Patient remained in sinus rhythm with no hypotension or palpitations. She did not have shortness of breath or hypoxia. Medical Engineer
recommended outpatient follow-up for further studies including echocardiogram. Patient remained hemodynamically stable and was discharged home in a stable condition. account manager sales representative was involved discharge planning and medication prescription.
Discharge Plan
-
Patient Disposition: Home (Routine Discharge)
Discharge Diagnosis/Procedures: Paroxysmal Atrial fibrillation.
He converted to sinus rhythm. You were seen by visual merchandising coordinator. He will need outpatient follow-up.
Hold hydrochlorothiazide until you see visual merchandising coordinator in the office to avoid low blood pressure due to the addition of new medications.
You were started on new medications:
Cardizem, calcium channel edi, potential side effect include hypotension, bradycardia.
Eliquis, blood thinner. Potential side effects include bleeding. Avoid falls. Any head trauma requires further attention.
Diet: As tolerated
Referrals:
Gi Gamez PA-C [Family Provider] - in one to two weeks
Karrie Torres MD [Active] - (The office will call you on Tuesday to arrange cardiovascular follow-up.)
Prescriptions:
New
diltiazem HCl 180 mg Capsule,Extended Release 24hr
180 mg PO DAILY Qty: 30 0RF
Eliquis 5 mg Tablet
5 mg PO BID Qty: 60 0RF
Continued
metformin 500 MG tablet
500 mg PO DAILY
lisinopril 40 MG tablet
40 mg PO QPM
omega 0-lmy-pie-fish oil 1 EACH capsule
1 ea PO BID
glipizide 5 mg Tablet Extended Release 24hr
5 mg PO DAILY
levothyroxine [Synthroid] 75 mcg Tablet
75 mcg PO DAILY
albuterol sulfate 90 mcg/actuation Hfa Aerosol Inhaler
2 inh INHALATION R Q6HPRN PRN (Reason: SOB)
rosuvastatin [Crestor] 5 mg Tablet
5 mg PO DAILY
Breztri Aerosphere 160-9-4.8 mcg/actuation Hfa Aerosol Inhaler
2 inh INHALATION R DAILY
Patient Comments:
PATIENT HAS FREE SAMPLE
therapeutic multivitamin Tablet
1 tab PO DAILY
Held
hydrochlorothiazide 25 MG tablet
25 mg PO DAILY
Hold Instructions: Resume on 07/21/24.
Discontinued
aspirin 81 mg Tablet,Delayed Release (Dr/Ec)
81 mg PO DAILY
Discharge Orders:
Discharge Patient (As Directed); Ordered 06/09/24
Ordered By: Antionette Lloyd
Discharge Date and Time
Print Language: TURKISH
[2024-06-09 15:12] VITALS: BP 117/58
[2024-06-09 15:15] LABS: Hepatitis C Antibody Negative (Negative)
--- NOTE | 2024-06-09 15:45 | PTCARENOTE ---
D/C instructions discussed w/pt & spouse. Pt given prescription & 30 day coupon for Eliquis. Pt left w/personal belonging including cellphone. Pt left via WC w/spouse driving her home.
--- NOTE | 2024-06-11 13:52 | CM ---
Chart reviewed. Patient is independent of ADLS, lives with her in a [address], 2 [address], 0 DME. Plan is to return home.
== END 2024-06-09 15:45 | disposition home or self-care (01) | DRG 310 ==
LOC: IVU 15:49
PROVIDERS: Emergency Medicine; ADMITTING PHYSICIAN Hospitalist; ATTENDING PHYSICIAN Internal Medicine; CONSULT PHYSICIAN Internal Medicine; EMERGENCY PHYSICIAN Emergency Medicine; FAMILY PHYSICIAN Physician Assistant
DX: I48.0 Paroxysmal atrial fibrillation (principal); I10 Essential (primary) hypertension; J44.9 Chronic obstructive pulmonary disease, unspecified; K21.9 Gastro-esophageal reflux disease without esophagitis; E78.00 Pure hypercholesterolemia, unspecified; C50.919 Malignant neoplasm of unspecified site of unspecified female breast; E03.9 Hypothyroidism, unspecified; E11.9 Type 2 diabetes mellitus without complications; I07.1 Rheumatic tricuspid insufficiency; Z79.01 Long term (current) use of anticoagulants; Z79.82 Long term (current) use of aspirin
CPT/HCPCS: 71275; 80053; 82962; 83036; 83735; 84443; 84484; 85025; 85379; 85730; 86803; 93005; 94640; 96365; 96366; 96367; 99291; Q9967

== ENCOUNTER 2024-06-13 13:22 | Inpatient (IN) | payer OTHER, SELFPAY ==
[2024-06-13] VITALS (7 sets, daily range): BP systolic 114–148; BP diastolic 61–87; BMI 28.6
--- NOTE | 2024-06-13 09:47 | ED.GENMED ---
History of Present Illness
General
Chief Complaint: Cardiac Symptoms
Source: patient and family
Time Seen by Provider: 06/13/24 09:29
History of Present Illness
History of Present Illness:
68-year-old female presents emergency department with complaints of dyspnea on exertion and chest discomfort. Patient was recently here in the hospital for atrial fibrillation, spontaneously converted, and was discharged on anticoagulation which
she is taking without black stool or bleeding. She said that last week when she was diagnosed with A-fib she was having similar symptoms, but presents today because her symptoms are worse. She notes dyspnea with even mild exertion such as walking
to the mailbox or walking up the steps. This dyspnea is worse when she is supine. She notes an occasional cough but denies rhinorrhea or fever. She has been having chills and overall fatigue. In addition she describes discomfort in her chest
under her left breast that wraps around to her left back area that is 'throbbing'. This pain has been constant since Tuesday evening but also seems to be worse with a deep breath or when supine. Patient denies weight gain and in fact lost weight
because she was eating less than usual. She denies lower extremity edema, orthopnea, PND.
Past History
Past History
ED Past Medical History: Other (A-fib, diabetes, hypertension, COPD, hypothyroidism)
ED Past Surgical History: Other (Lumpectomy, hernia)
Social History
Tobacco: Non-smoker
Alcohol: None
Drug: None
Personal:
Living: with family
Employment: Employed
Phy Exam
Physical Exam
Physical Exam:
GENERAL: Alert , in no apparent distress
EYE: pupils equal and reactive
NECK: Supple, no significant adenopathy.
ENT: o/p clr, mmm.
CARDIAC: Regular rate and rhythm .
LUNGS: Equal breath sounds bilaterally, no acute respiratory distress, no wheezes or rhonchi, bibasilar rales noted
ABDOMEN: Soft, without focal tenderness, no r/g, no cvat
NEUROLOGICAL: Alert and oriented, no focal neuro deficits
SKIN: Warm and dry, skin intact.
MUSCULOSKELETAL: Trace bilateral lower extremity edema, well perfused.
PSYCH: Normal and appropriate interaction.
Course
Orders/Labs/Results
Orders:
Orders
06/13/24 09:18
ECG [Electrocardiogram (*1)] Urgent
Reason for Study: Chest Pain
EKG- Treatment ONCE
06/13/24 09:28
Cardiac Monitoring- Treatment ONCE
06/13/24 09:36
Complete Blood Count/With Diff Urgent
Comprehensive Metabolic Panel Urgent
NT-proBNP Urgent
Comment: ADD ON
Troponin I Urgent
06/13/24 09:46
CR Chest - 2 Views Urgent
Comment:
Reason For Exam: arenas, cp, hx afib
06/13/24 09:47
Add On- LAB Urgent
Tests Added?: pro BNP
06/13/24 Lunch
Cholesterol Lowering
At Your Request: Full Participation
Does patient need a safe tray?: No
Cholesterol Lowering: Sodium, 2 Gram
2000 andry/17 CHO Diabetic
06/13/24 10:14
COVID-19 Antigen Urgent
Source: Nasal Swab
06/13/24 11:04
Piperacillin/Tazo 4.5 Gram [Zosyn] 4.5 gram in 100 ml IV NOW
06/13/24 12:14
Admit/Transfer Patient As Directed
Co-Sign Provider:
Level of Care: Inpatient admission
Assign to:: Telemetry
Physician / Group: carol leija
Diagnosis: PNA
Reason for Telemetry: Medication for Arrhythmia
Date to Stop Telemetry: 06/15/24
Time to Stop Telemetry: 11:00
Reason for Hospitalization: PNA
Expected length of stay greater than two midnights?: Yes
ELOS- Estimated Length of Stay in days: 2
I certify the patient meets the requirements for IP care: Yes
PRN Pain Medication Management As Directed
May give lesser potent ordered pain med per pt: Yes
preference::
Protocol:: Medication orders for pain may be administered in a
manner that supports deferring to patient preference
when the pt is:
- Requesting an ordered lesser potent pain medication.
Least to most potent pain medications are defined
as: acetaminophen < NSAID < tramadol < opioids
(morphine, oxycodone, hydromorphone).
- Requesting a lesser dose of the same medication IF
ORDERED.
- Requesting a less intrusive route of administration
if both routes are prescribed by the provider (PO <
IV).
06/13/24 12:21
Code Status As Directed
Resuscitation Status: Full Code
06/13/24 12:27
CefTRIAXone [Rocephin] 1,000 mg IV NOW STA
Doxycycline [Vibramycin] 100 mg PO NOW STA
06/13/24 12:28
Influenza A+B Rapid Molecular Routine
ONIEL Source: Nasal Swab
Specimen Description:
06/13/24 12:38
Sterile Water [Sterile Water For Injection] 10 ml IV NOW STA
06/15/24 11:00
DC Protocol for Telemetry ONCE
Abnormal Lab Results
06/13/24
09:36
WBC 15.7 H 10^3/uL
(4.8-10.8)
RBC 3.64 L 10^6/uL
(4.20-5.40)
Hgb 11.3 L g/dL
(12.0-16.0)
Hct 33.6 L %
(37.0-47.0)
Plt Count 519 H D 10^3/uL
(130-400)
Abs Immat Gran (auto) 0.1 H 10^3/uL
(0-0.05)
Absolute Neuts (auto) 12.5 H 10^3/uL
(1.4-6.5)
Absolute Monos (auto) 1.1 H 10^3/uL
(0.1-0.6)
Immature Gran % 0.6 H %
(0-0.5)
Neutrophils % 79.5 H %
(42.2-75.2)
Lymphocytes % 11.5 L %
(20.5-51.1)
Glucose 192 H mg/dl
(70-99)
AST 47 H U/L
(14-36)
ALT 62 H U/L
(0-35)
06/13/24 09:36
06/13/24 09:36
Vital Signs
Initial and Last Documented VS:
Initial Vital Signs
Temp Pulse Resp BP Pulse Ox
98.2 F 89 18 148/70 95
06/13/24 09:19 06/13/24 09:19 06/13/24 09:19 06/13/24 09:19 06/13/24 09:19
Last Documented Vital Signs
Temp Pulse Resp BP Pulse Ox
98.2 F 81 37 128/70 90
06/13/24 09:19 06/13/24 15:00 06/13/24 15:00 06/13/24 13:00 06/13/24 15:00
*Critical Care Note
Total Time (30-74mins, 75-104mins- exclusive of procedures): Not Applicable
Update Note
Update Note:
Patient presents to the Emergency Department with ____dyspnea and chest pain
Number and Complexity of Problems Addressed at the Encounter
� Chronic conditions affecting care:
� Acute Exacerbation and/or Progression of Chronic Illness:
� Differential Diagnosis includes: But not limited to pneumonia, heart failure, PE, pericardial effusion, ACS, etc. etc.
Amount and/or Complexity of Data to be Reviewed and Analyzed
� I performed an independent evaluation of and my interpretation is:
EKG: Read by me, normal sinus rhythm, nonspecific T wave inversions laterally which are unchanged from June 08
CT:
Xrays:Low lung volumes.
Pulmonary vascularity at least top normal.
Large hiatal hernia again seen.
Some suspected bibasilar opacification, left greater than right which could represent subsegmental atelectasis and/or pneumonia and small pleural effusions.
Laboratory Studies:
Other:
� Review of other/old records reveals: 06/14 d/c summary-afib with spont conversion, started on ac
� Clinical information was obtained by an independent historian:daughter who is bedside
� Prescriptions/Medications Considered but not given:
� Further testing considered but not performed:
Risk of Complications and/or Morbidity or Mortality of Patient Management
� Social determinants of health affecting care:
� Discussion with other providers (PCP, Hospitalists, Consultants, etc):
� Escalation of care including admission/observation vs risk of discharge considered: 11:02 AM clinically strongly suspect pneumonia with possible effusion especially given patient's pleuritic pain. Given patient is already
fully anticoagulated I think PE is extremely unlikely. History of chills, cough, fatigue, leukocytosis, chest x-ray findings, etc. point to the more likely diagnosis of pneumonia. Recommend hospitalization and IV antibiotics.
ED Attending Note
-
Portions of this chart may have been created with voice recognition software.� Occasional wrong word or��sound alike� substitutions may have occurred due to the inherent limitations of voice recognition software.
Discharge Plan
Departure
Patient Disposition: Admit
Date of Disposition: 06/13/24
Time of Disposition: 11:03
Presentation/result/management discussed w/ accepting MD/DO: Hospitalist
Condition: Good
Discharge Problem:
Pneumonia
Interventions
Interventions:
*Risk Screen - Suicide Last Done: 06/13/24 09:19
*General Assessment Last Done: 06/13/24 09:19
*Neglect/Abuse Screening Last Done: 06/13/24 09:19
ED- Fall Risk Assessment Last Done: 06/13/24 09:39
ED- Pulmonary Assessment Last Done: 06/13/24 09:39
ED- Cardiac Assessment Last Done: 06/13/24 09:39
[2024-06-13 10:01] LABS: % Basophils 0.4 % (0-2); % Eosinophils 0.9 % (0-6); % Immature Granulocytes 0.6 % (0-0.5); % Lymphocytes 11.5 % (20.5-51.1); % Monocytes 7.1 % (1.7-9.3); % Neutrophils 79.5 % (42.2-75.2); Absolute Basophils 0.1 10^3/uL (0-0.2); Absolute Eosinophils 0.1 10^3/uL (0-0.7); Absolute Immature Granulocytes 0.1 10^3/uL (0-0.05); Absolute Lymphocytes 1.8 10^3/uL (1.2-3.4); Absolute Monocytes 1.1 10^3/uL (0.1-0.6); Absolute Neutrophils 12.5 10^3/uL (1.4-6.5); Hematocrit 33.6 % (37.0-47.0); Hemoglobin 11.3 g/dL (12.0-16.0); Mean Corp Hgb Conc. 33.6 g/dL (33.0-37.0); Mean Corpuscular Volume 92.3 fL (81.0-99.0); Mean Platelet Volume 9.1 fL (7.4-10.4); Nucleated Red Blood Cells % 0 %; Platelet Count 519 10^3/uL (130-400); Red Blood Cell Count 3.64 10^6/uL (4.20-5.40); Red Cell Dist. Width 13.5 % (11.5-14.5); White Blood Cell Count 15.7 10^3/uL (4.8-10.8)
[2024-06-13 10:05] LABS: ALT (SGPT) 62 U/L (0-35); AST (SGOT) 47 U/L (14-36); Albumin 3.7 g/dl (3.5-5.0); Alkaline Phosphatase 108 U/L (38-126); Blood Urea Nitrogen 15 mg/dl (7-17); Calcium 9.4 mg/dl (8.4-10.2); Carbon Dioxide 23 mmol/L (22-30); Chloride 100 mmol/L (98-107); Glucose 192 mg/dl (70-99); Sodium 137 mmol/L (135-145); Total Protein 6.9 g/dl (6.3-8.2); eGFR > 60.00
[2024-06-13 10:09] LABS: Troponin I < 0.012 ng/ml
[2024-06-13 10:27] LABS: NT-proBNP 511 pg/ml
[2024-06-13 11:04] LABS: COVID-19 Antigen Negative (Negative)
[2024-06-13] MEDS: ZOSYN 100 IV (11:30)
--- NOTE | 2024-06-13 11:51 | HPS.HSE ---
Family Physician
-
Family Physician: Gi Gamez
Chief Complaint
-
Shortness of breath, left-sided chest pain
History of Present Illness
68-year-old female with a past medical history of recently diagnosed atrial fibrillation on Eliquis, hypothyroidism, hypertension, and type 2 diabetes presents with a 3-day history of shortness of breath, left-sided chest pain. Patient states that
her left-sided chest pain is worse with inspiration. She has dyspnea with activity, and conversational dyspnea. She was febrile at 100.6 on 06/08/2024. Chest x-ray is concerning for pneumonia. She does have a leukocytosis. She also reports a
productive cough, nasal congestion, and headache. No black or bloody stools. No bloody urine. No nausea, no vomiting.
Medical History
Past Medical History
Past Medical History: Reports Other (COPD, GERD, hypertension, hypercholesteremia, migraines, breast cancer status postlumpectomy/radiation, hypothyroidism, diabetes)
Past Surgical History: Reports Other (Left-sided lumpectomy, hernia repair)
Social History
Tobacco: Non-smoker
Alcohol: None
Drug: None
Family History
Family History: Not pertinent
Allergies / Home Medications
Allergies reflects when Allergies were last updated in [facility].
Home Medications with original date entered in [facility]
Allergy/Medication List:
Allergies
Allergy/AdvReac Type Severity Reaction Status Date / Time
sulfamethoxazole Allergy Rash Verified 06/13/24 09:19
[From Bactrim]
trimethoprim [From Bactrim] Allergy Rash Verified 06/13/24 09:19
Home Medications Table - record
�Medication �Instructions �Recorded �Confirmed
lisinopril 40 mg tablet 40 mg PO QPM Blood Pressure 04/26/14 06/13/24
metformin 500 mg tablet 500 mg PO DAILY Diabetes 04/26/14 06/13/24
omega 9-hay-vhy-fish oil 250 1 ea PO BID Supplement 04/29/14 06/13/24
mg-500 mg-1,000 mg capsule
albuterol sulfate 90 mcg/actuation 2 inh inhalation R Q6HPRN PRN SOB 06/08/24 06/13/24
aerosol inhaler
budesonide 160 mcg-glycopyr 9 2 inh inhalation R DAILY 06/08/24 06/13/24
mcg-formot 4.8 mcg/actuation HFA Lung/Breathing Issues
inhaler (Breztri Aerosphere)
glipizide 5 mg tablet, extended 5 mg PO DAILY Diabetes 06/08/24 06/13/24
release 24 hr
levothyroxine 75 mcg tablet 75 mcg PO DAILY Thyroid 06/08/24 06/13/24
(Synthroid)
rosuvastatin 5 mg tablet (Crestor) 5 mg PO DAILY High Cholesterol 06/08/24 06/13/24
therapeutic multivitamin 1 tab PO DAILY Supplement 06/08/24 06/13/24
acetaminophen 325 mg tablet 650 mg PO DAILYPRN PRN mild pain 06/13/24 06/13/24
(Tylenol)
apixaban 5 mg tablet (Eliquis) 5 mg PO BID Blood Clot 06/13/24 06/13/24
Prevention/Tx
ecdpoyr-eduwjufzwnqhd-lsoekkgj 250 1 tab PO DAILYPRN PRN headache 06/13/24 06/13/24
mg-250 mg-65 mg tablet (Excedrin
Extra Strength)
diltiazem HCl 180 mg 180 mg PO DAILY Blood Pressure 06/13/24 06/13/24
capsule,extended release 24 hr
polyethylene glycol 3350 17 gram 17 g PO DAILYPRN PRN constipation 06/13/24 06/13/24
oral powder packet (Miralax)
Review of Systems
-
A 12 point ROS was completed and negative except as noted: Yes
Physical Exam
Vital Signs
Vital Signs
Temp Pulse Resp BP Pulse Ox
98.2 F 76 31 123/87 92
06/13/24 09:19 06/13/24 10:45 06/13/24 10:45 06/13/24 10:44 06/13/24 10:45
Physical Exam
General: No Apparent Distress
HEENT: NormoCephalic, Anicteric and Moist mucous membranes
Respiratory: Crackles
Cardiac: Regular Rhythm
GI: Soft, Non Tender, Non Distended and Normal Bowel Sounds
Skin: Warm and Dry
Neuro: Awake, Alert and Oriented
Psych: Calm
Laboratory Results
-
06/13/24 09:36
06/13/24 09:36
Laboratory Results
Total Bilirubin 1.0 mg/dl (0.2-1.3) 06/13/24 09:36
AST 47 U/L (14-36) H 06/13/24 09:36
ALT 62 U/L (0-35) H 06/13/24 09:36
Alkaline Phosphatase 108 U/L (38-126) 06/13/24 09:36
Troponin I < 0.012 ng/ml 06/13/24 09:36
Impression/Plan
-
HPI: 68-year-old female with a past medical history of recently diagnosed atrial fibrillation on Eliquis, hypothyroidism, hypertension, and type 2 diabetes presents with a 3-day history of shortness of breath, left-sided chest pain. Patient states
that her left-sided chest pain is worse with inspiration. She has dyspnea with activity, and conversational dyspnea. She was febrile at 100.6 on 06/08/2024. Chest x-ray is concerning for pneumonia. She does have a leukocytosis. She also reports
a productive cough, nasal congestion, and headache. No black or bloody stools. No bloody urine. No nausea, no vomiting.
#Sepsis
#Community-acquired pneumonia
06/08/2024, fever to 100.6
With leukocytosis at 15.6
COVID-negative, check influenza/urine Legionella antigen/strep Legionella antigen/sputum Gram stain and culture
Status post IV Zosyn in the ER
Treat with Rocephin/doxycycline
Trend fever and white count
#Thrombocytosis
Likely reactive from sepsis, monitor
#Radiation-induced COPD
Stable, continue bronchodilators
#Paroxysmal atrial fibrillation
Continue diltiazem, Eliquis
#Type 2 diabetes
Continue glipizide, metformin
Diabetic diet, sliding scale insulin
#Constipation
Start laxatives
#Essential hypertension
Continue with diltiazem, lisinopril at reduced dose
#Hypothyroidism
Continue levothyroxine
#Hyperlipidemia
Continue statin
DVT prophylaxis�Eliquis
Full code
Updated daughter at bedside 06/13
Total time spent to see the patient on the floor, examine the patient, review data and lab results, discuss treatment plan with patient, nursing staff around 76 minutes.
--- NOTE | 2024-06-13 12:54 | PTCARENOTE ---
I called pharmacy to question giving 3 antibiotics so close together. ER clinical pharmacy coordinator responded with yes. House doctor was questioned with clarity on timing of 3 antibiotics so close together and doctor wants meds delivered now.
[2024-06-13] MEDS: VIBRAMYCIN 100 MG PO ×2 (13:06→20:08)
[2024-06-13] MEDS: ROCEPHIN 1000 MG IV (13:07)
[2024-06-13] MEDS: STERILE WATER FOR INJECTION 10 ML IV (13:07)
[2024-06-13 16:22] LABS: Glucose - Point of Care 140 mg/dl (70-99)
[2024-06-13] MEDS: NOVOLOG FLEXPEN-MODERATE RESISTANCE SC (16:46)
[2024-06-13] MEDS: LIDOCAINE 4% PATCH 1 PATCH TOPICAL (16:52)
[2024-06-13] MEDS: ZESTRIL 20 MG PO (16:53)
[2024-06-13] MEDS: SENOKOT-S 2 TABLET PO ×2 (16:53→20:08)
[2024-06-13] MEDS: MIRALAX 17 GRAMS PO (16:53)
[2024-06-13] MEDS: TYLENOL 650 MG PO (17:00)
[2024-06-13] MEDS: ROBITUSSIN DM 5 ML PO (17:01)
--- NOTE | 2024-06-13 18:12 | PTCARENOTE ---
Admitted to room 417-2 from ED. Ambulated to bed w/ standby assistance, +MOLINA. AOx3. VSS. Updated on plan of care. Left w/ call reeys in reach, encouraged to make needs known.
[2024-06-13] MEDS: SYMBICORT 160/4.5 MCG INHALER 2 PUFF INH (19:30)
[2024-06-13] MEDS: ELIQUIS 5 MG PO (20:08)
[2024-06-13 20:21] LABS: Glucose - Point of Care 185 mg/dl (70-99)
[2024-06-13 21:52] LABS: Glucose - Point of Care 163 mg/dl (70-99)
[2024-06-14] VITALS (8 sets, daily range): BP systolic 100–139; BP diastolic 63–84
[2024-06-14] MEDS: TYLENOL 650 MG PO ×3 (04:02→23:28)
[2024-06-14] MEDS: SYNTHROID 75 MCG PO (05:03)
[2024-06-14 07:48] LABS: Glucose - Point of Care 146 mg/dl (70-99)
[2024-06-14 07:50] LABS: Hemoglobin 10.5 g/dL (12.0-16.0); Mean Corp Hgb Conc. 33.9 g/dL (33.0-37.0); Mean Corpuscular Hgb 31.5 pg (27.0-31.0); Mean Corpuscular Volume 93.1 fL (81.0-99.0); Platelet Count 480 10^3/uL (130-400); Red Blood Cell Count 3.33 10^6/uL (4.20-5.40); Red Cell Dist. Width 13.6 % (11.5-14.5); White Blood Cell Count 15.6 10^3/uL (4.8-10.8)
--- NOTE | 2024-06-14 08:11 | W.PN.HOSP.TC ---
Today's Communication/Plan
-
see bold
Assessment / Plan
Assessment / Plan
HPI: 68-year-old female with a past medical history of recently diagnosed atrial fibrillation on Eliquis, hypothyroidism, hypertension, and type 2 diabetes presents with a 3-day history of shortness of breath, left-sided chest pain. Patient states
that her left-sided chest pain is worse with inspiration. She has dyspnea with activity, and conversational dyspnea. She was febrile at 100.6 on 06/08/2024. Chest x-ray is concerning for pneumonia. She does have a leukocytosis. She also reports
a productive cough, nasal congestion, and headache. No black or bloody stools. No bloody urine. No nausea, no vomiting.
#Sepsis
#Community-acquired pneumonia
06/08/2024, fever to 100.6, now resolved
With leukocytosis at 15.6
COVID/flu negative, urine Legionella antigen/strep Legionella antigen neg, blood culture neg
Status post IV Zosyn in the ER
Treat with Rocephin/doxycycline D2, F/u sputum Gram stain and culture
Trend fever and white count, check procalcitonin
#Paroxysmal atrial fibrillation with rapid ventricular response
Hold albuterol, give metoprolol titrate 5 mg IV x 1, start metoprolol titrate 50 mg twice daily
Continue diltiazem, Eliquis
#Thrombocytosis
Likely reactive from sepsis, monitor
#Radiation-induced COPD
Stable, change bronchodilators to Xopenex for tachycardia
#Type 2 diabetes
A1C 7.1
Continue glipizide, metformin
Diabetic diet, sliding scale insulin
#Constipation
Continue laxatives
#Essential hypertension
Continue with diltiazem
Hold lisinopril since she will be started on metoprolol for rapid atrial fibrillation
#Hypothyroidism
Continue levothyroxine
#Hyperlipidemia
Continue statin
DVT prophylaxis�Eliquis
Full code
Updated daughter at bedside 06/13
Total time spent to see the patient on the floor, examine the patient, review data and lab results, discuss treatment plan with patient, nursing staff around 51 minutes.
Physical Exam
General: No acute distress
HEENT: Normocephalic, Atraumatic, EOMI, MMM
Respiratory: Faint bibasilar crackles
Cardiac: Normal S1/S2, tachycardic rate, irregularly irregular
GI: Soft, Nontender, Nondistended, Normal Bowel Sounds
Extremities: No Clubbing, Cyanosis, or Edema
Neuro: Nonfocal/Grossly Intact
Psych: Calm, Cooperative
Derm: No Visible lesions
Anticipated Discharge: 24 - 48 hours
Subjective/Interval History
-
Date of Service: June 14, 2024
Shortness of breath with exertion mildly improved. Left-sided pleuritic chest pain waxes and wanes. She has a dry cough. No fever, no vomiting.
Objective Data
-
Labs:
Laboratory Results
06/14/24
07:03
WBC 15.6 H
Hgb 10.5 L
Hct 31.0 L
Plt Count 480 H
Vital Signs:
Vital Signs
Temp Pulse Resp BP Pulse Ox
99.3 F 83 18 118/63 93
06/14/24 03:42 06/14/24 03:42 06/14/24 03:42 06/14/24 03:42 06/14/24 03:42
I&O
06/13/24 06/14/24 06/15/24
06:59 06:59 06:59
Intake Total 960 / 960
Balance 960 / 960
[2024-06-14] MEDS: SPIRIVA RESPIMAT 2.5 MCG 2 PUFF INH (08:20)
[2024-06-14] MEDS: SYMBICORT 160/4.5 MCG INHALER 2 PUFF INH (08:20)
[2024-06-14 08:52] LABS: Glycohemoglobin (HgbA1c) 7.1 % (4.0-5.6)
[2024-06-14] MEDS: MIRALAX 17 GRAMS PO ×2 (09:22→20:37)
[2024-06-14] MEDS: LIDOCAINE 4% PATCH 1 PATCH TOPICAL (09:26)
[2024-06-14] MEDS: GLUCOPHAGE 500 MG PO (09:28)
[2024-06-14] MEDS: CARDIZEM CD 180 MG PO (09:28)
[2024-06-14] MEDS: GLUCOTROL XL (EXTENDED RELEASE) 5 MG PO (09:28)
[2024-06-14] MEDS: VIBRAMYCIN 100 MG PO ×2 (09:28→20:37)
[2024-06-14] MEDS: SENOKOT-S 2 TABLET PO ×2 (09:29→20:37)
[2024-06-14] MEDS: CRESTOR 5 MG PO (09:29)
[2024-06-14] MEDS: ELIQUIS 5 MG PO ×2 (09:30→20:37)
[2024-06-14] MEDS: NOVOLOG FLEXPEN-MODERATE RESISTANCE SC ×2 (09:32→17:45)
[2024-06-14] MEDS: ROBITUSSIN DM 5 ML PO (09:37)
[2024-06-14 11:50] LABS: Glucose - Point of Care 155 mg/dl (70-99)
[2024-06-14] MEDS: ROCEPHIN 1000 MG IV (12:38)
[2024-06-14] MEDS: STERILE WATER FOR INJECTION 10 ML IV (12:40)
[2024-06-14] MEDS: LOPRESSOR 5 MG IV (12:41)
[2024-06-14] MEDS: LOPRESSOR 50 MG PO ×2 (13:00→20:40)
[2024-06-14] MEDS: NOVOLOG FLEXPEN-MODERATE RESISTANCE 1 UNITS SC (13:17)
[2024-06-14 14:05] LABS: Troponin I < 0.012 ng/ml
--- NOTE | 2024-06-14 14:16 | CM ---
Pt seen bedside w/ spouse. Pt lives w/ spouse in a [facility] w/ 3 steps to enter.
Prev. independent, denies DME for ambulation and daily functioning
Denies SNF hx, but did receive OP rehab in the past
Denies VN/PT hx
Denies financial insecurities
Address, point of contact and insurance verified
PCP: Dr. Gi Gamez
Spouse will transport at d/c
CM will cont. to follow for d/c need
Plan: Home w/ no need anticipated
[2024-06-14 16:41] LABS: Glucose - Point of Care 141 mg/dl (70-99)
[2024-06-14 21:26] LABS: Glucose - Point of Care 129 mg/dl (70-99)
[2024-06-14] MEDS: ProAIR HFA INHALER 2 PUFF INH (23:46)
[2024-06-15 03:52] VITALS: BP 125/68
[2024-06-15] MEDS: SYNTHROID 75 MCG PO (05:19)
[2024-06-15 06:24] LABS: Hematocrit 30.6 % (37.0-47.0); Hemoglobin 10.4 g/dL (12.0-16.0); Mean Corpuscular Hgb 30.8 pg (27.0-31.0); Mean Corpuscular Volume 90.5 fL (81.0-99.0); Mean Platelet Volume 8.7 fL (7.4-10.4); Platelet Count 492 10^3/uL (130-400); Red Blood Cell Count 3.38 10^6/uL (4.20-5.40); Red Cell Dist. Width 13.8 % (11.5-14.5); White Blood Cell Count 15.8 10^3/uL (4.8-10.8)
[2024-06-15 07:00] VITALS: BP 129/66; BP 140/74
[2024-06-15 07:01] LABS: Iron 32 ug/dl (37-170)
[2024-06-15 07:06] LABS: Procalcitonin 0.15 ng/ml (0.0-0.25)
[2024-06-15 07:11] LABS: Percent Saturation 14 % (20-50); Total Iron Binding Capacity 222 ug/dl (265-497)
[2024-06-15 07:22] LABS: Glucose - Point of Care 135 mg/dl (70-99)
[2024-06-15 08:00] LABS: Vitamin B12 539 pg/ml (239-931)
[2024-06-15] MEDS: ProAIR HFA INHALER 2 PUFF INH ×2 (08:11→21:27)
[2024-06-15] MEDS: SPIRIVA RESPIMAT 2.5 MCG 2 PUFF INH (08:11)
[2024-06-15] MEDS: NOVOLOG FLEXPEN-MODERATE RESISTANCE SC ×3 (09:24→17:35)
[2024-06-15] MEDS: CARDIZEM CD 180 MG PO (09:27)
[2024-06-15] MEDS: SENOKOT-S 2 TABLET PO ×2 (09:29→21:04)
[2024-06-15] MEDS: GLUCOTROL XL (EXTENDED RELEASE) 5 MG PO (09:30)
[2024-06-15] MEDS: LOPRESSOR 50 MG PO ×2 (09:30→21:00)
[2024-06-15] MEDS: CRESTOR 5 MG PO (09:30)
[2024-06-15] MEDS: GLUCOPHAGE 500 MG PO (09:31)
[2024-06-15] MEDS: ELIQUIS 5 MG PO ×2 (09:31→21:00)
[2024-06-15] MEDS: LIDOCAINE 4% PATCH TOPICAL (09:32)
[2024-06-15] MEDS: MIRALAX 17 GRAMS PO ×2 (09:32→21:00)
[2024-06-15] MEDS: VIBRAMYCIN 100 MG PO ×2 (09:33→21:00)
--- NOTE | 2024-06-15 09:38 | W.PN.HOSP.TC ---
Today's Communication/Plan
-
see bold
Assessment / Plan
Assessment / Plan
HPI: 68-year-old female with a past medical history of recently diagnosed atrial fibrillation on Eliquis, hypothyroidism, hypertension, and type 2 diabetes presents with a 3-day history of shortness of breath, left-sided chest pain. Patient states
that her left-sided chest pain is worse with inspiration. She has dyspnea with activity, and conversational dyspnea. She was febrile at 100.6 on 06/08/2024. Chest x-ray is concerning for pneumonia. She does have a leukocytosis. She also reports
a productive cough, nasal congestion, and headache. No black or bloody stools. No bloody urine. No nausea, no vomiting.
#Sepsis
#Community-acquired pneumonia
06/08/2024, fever to 100.6, now resolved
With leukocytosis at 15.6
COVID/flu negative, urine Legionella antigen/strep Legionella antigen neg, blood culture neg
Status post IV Zosyn in the ER
Treat with Rocephin/doxycycline D3, F/u sputum Gram stain and culture
Trend fever and white count, procalcitonin neg -suspicious for viral pneumonia
Continue antibiotics empirically
#Constipation
Continue laxatives
Give mag citrate x 1, Dulcolax rectal x 1
#Paroxysmal atrial fibrillation with rapid ventricular response
Hold albuterol
Rate now controlled on metoprolol titrate 5 mg IV x 1, and metoprolol titrate 50 mg twice daily
Continue diltiazem, Eliquis
#Essential hypertension
Continue with diltiazem
Lisinopril reduced to 5 mg every afternoon
Started on metoprolol tartrate 50 mg twice daily
#Worsening normocytic anemia
Suspect secondary to sepsis
B12/folic acid normal
Iron low, ferritin high from infection
Would recommend iron supplement upon discharge once constipation has resolved
#Thrombocytosis
Likely reactive from sepsis, monitor
#Radiation-induced COPD
Stable, changed bronchodilators to Xopenex for tachycardia
#Type 2 diabetes
A1C 7.1
Continue glipizide, metformin
Diabetic diet, sliding scale insulin
#Hypothyroidism
Continue levothyroxine
#Hyperlipidemia
Continue statin
DVT prophylaxis�Eliquis
Full code
Updated daughter at bedside 06/13, updated at bedside 06/15
Total time spent to see the patient on the floor, examine the patient, review data and lab results, discuss treatment plan with patient, nursing staff around 50 minutes.
Physical Exam
General: No acute distress
HEENT: Normocephalic, Atraumatic, EOMI, MMM
Respiratory: Faint bibasilar crackles
Cardiac: Normal S1/S2, tachycardic rate, irregularly irregular
GI: Soft, Nontender, Nondistended, Normal Bowel Sounds
Extremities: No Clubbing, Cyanosis, or Edema
Neuro: Nonfocal/Grossly Intact
Psych: Calm, Cooperative
Derm: No Visible lesions
Anticipated Discharge: 24 - 48 hours
Subjective/Interval History
-
Date of Service: June 14, 2024
Patient reports her breathing has improved. Her pleuritic left-sided chest pain is also improved. Her main complaint is constipation. No fever, no vomiting.
Objective Data
-
Labs:
Laboratory Results
06/14/24
07:03
WBC 15.6 H
Hgb 10.5 L
Hct 31.0 L
Plt Count 480 H
Vital Signs:
Vital Signs
Temp Pulse Resp BP Pulse Ox
99.0 F 68 18 100/63 93
06/14/24 15:08 06/14/24 15:08 06/14/24 15:08 06/14/24 15:08 06/14/24 15:08
I&O
10/23/24 10/24/24 10/25/24
06:59 06:59 06:59
Intake Total 960 / 960
Balance 960 / 960
[2024-06-15 11:00] VITALS: BP 140/74
[2024-06-15 11:55] LABS: Glucose - Point of Care 140 mg/dl (70-99)
[2024-06-15] MEDS: CITROMA 300 ML PO (12:37)
[2024-06-15] MEDS: STERILE WATER FOR INJECTION 10 ML IV (12:38)
[2024-06-15] MEDS: DULCOLAX 10 MG RECTAL (12:38)
[2024-06-15] MEDS: ROCEPHIN 1000 MG IV (12:39)
[2024-06-15 15:00] VITALS: BP 128/72
[2024-06-15 17:00] LABS: Glucose - Point of Care 136 mg/dl (70-99)
[2024-06-15] MEDS: ZESTRIL 5 MG PO (18:16)
[2024-06-15 19:38] VITALS: BP 129/68
[2024-06-15] MEDS: MUCINEX 600 MG PO (21:00)
[2024-06-15] MEDS: TYLENOL 650 MG PO (21:25)
[2024-06-15 21:26] LABS: Glucose - Point of Care 115 mg/dl (70-99)
[2024-06-15 23:35] VITALS: BP 101/56
[2024-06-16 03:29] VITALS: BP 120/63
[2024-06-16] MEDS: SYNTHROID 75 MCG PO (05:53)
[2024-06-16 07:00] VITALS: BP 133/65
[2024-06-16 07:36] LABS: Hematocrit 31.7 % (37.0-47.0); Hemoglobin 10.7 g/dL (12.0-16.0); Mean Corp Hgb Conc. 33.8 g/dL (33.0-37.0); Mean Corpuscular Hgb 31.4 pg (27.0-31.0); Mean Platelet Volume 9.2 fL (7.4-10.4); Platelet Count 541 10^3/uL (130-400); Red Blood Cell Count 3.41 10^6/uL (4.20-5.40); Red Cell Dist. Width 13.8 % (11.5-14.5); White Blood Cell Count 13.7 10^3/uL (4.8-10.8)
[2024-06-16 07:44] LABS: Glucose - Point of Care 118 mg/dl (70-99)
[2024-06-16 07:48] LABS: Blood Urea Nitrogen 29 mg/dl (7-17); Calcium 9.2 mg/dl (8.4-10.2); Carbon Dioxide 22 mmol/L (22-30); Chloride 104 mmol/L (98-107); Estimated Creatinine Clearance 61 ml/min; Glucose 101 mg/dl (70-99); Magnesium 2.1 mg/dl (1.6-2.3); Potassium 4.4 mmol/L (3.5-5.1); Sodium 142 mmol/L (135-145); eGFR > 60.00
[2024-06-16] MEDS: SPIRIVA RESPIMAT 2.5 MCG 2 PUFF INH (08:07)
[2024-06-16] MEDS: NOVOLOG FLEXPEN-MODERATE RESISTANCE SC ×2 (09:37→12:32)
[2024-06-16] MEDS: MUCINEX 600 MG PO (09:38)
[2024-06-16] MEDS: GLUCOTROL XL (EXTENDED RELEASE) 5 MG PO (09:38)
[2024-06-16] MEDS: VIBRAMYCIN 100 MG PO (09:38)
[2024-06-16] MEDS: LOPRESSOR 50 MG PO (09:39)
[2024-06-16] MEDS: GLUCOPHAGE 500 MG PO (09:39)
[2024-06-16] MEDS: SENOKOT-S 2 TABLET PO (09:39)
[2024-06-16] MEDS: ELIQUIS 5 MG PO (09:40)
[2024-06-16] MEDS: CARDIZEM CD 180 MG PO (09:40)
[2024-06-16] MEDS: CRESTOR 5 MG PO (09:40)
[2024-06-16] MEDS: LIDOCAINE 4% PATCH TOPICAL (09:40)
[2024-06-16] MEDS: MIRALAX 17 GRAMS PO (09:41)
--- NOTE | 2024-06-16 09:45 | W.PN.HOSP.TC ---
Today's Communication/Plan
-
Discharge today
Assessment / Plan
Assessment / Plan
HPI: 68-year-old female with a past medical history of recently diagnosed atrial fibrillation on Eliquis, hypothyroidism, hypertension, and type 2 diabetes presents with a 3-day history of shortness of breath, left-sided chest pain. Patient states
that her left-sided chest pain is worse with inspiration. She has dyspnea with activity, and conversational dyspnea. She was febrile at 100.6 on 06/08/2024. Chest x-ray is concerning for pneumonia. She does have a leukocytosis. She also reports
a productive cough, nasal congestion, and headache. No black or bloody stools. No bloody urine. No nausea, no vomiting.
#Sepsis
#Community-acquired pneumonia
06/08/2024, fever to 100.6, now resolved
With leukocytosis at 15.6
COVID/flu negative, urine Legionella antigen/strep Legionella antigen neg, blood culture neg
Status post IV Zosyn in the ER
Trend fever and white count, procalcitonin neg -suspicious for viral pneumonia
Continue antibiotics empirically
Currently on IV Rocephin and oral doxycycline, will discharge on cefdinir and doxycycline to complete a 7-day course
#Constipation
Continue laxatives
Resolved
#Paroxysmal atrial fibrillation with rapid ventricular response
Hold albuterol
Rate now controlled on metoprolol titrate 5 mg IV x 1, and metoprolol titrate 50 mg twice daily
Plan to discharge on Toprol XL 50 mg daily
Continue diltiazem, Eliquis
#Essential hypertension
Continue with diltiazem
Plan to discharge on lisinopril 20 mg daily, dose reduced from her usual 40 mg daily due to starting metoprolol
#Worsening normocytic anemia
Suspect secondary to sepsis
B12/folic acid normal
Iron low, ferritin high from infection
#Thrombocytosis
Likely reactive from sepsis, monitor
#Radiation-induced COPD
Stable, changed bronchodilators to Xopenex for tachycardia
#Type 2 diabetes
A1C 7.1
Continue glipizide, metformin
Diabetic diet, sliding scale insulin
#Hypothyroidism
Continue levothyroxine
#Hyperlipidemia
Continue statin
DVT prophylaxis�Eliquis
Full code
Updated daughter at bedside 06/13, updated at bedside 06/15
Physical Exam
General: No acute distress
HEENT: Normocephalic, Atraumatic, EOMI, MMM
Respiratory: Faint bibasilar crackles
Cardiac: Normal S1/S2, tachycardic rate, irregularly irregular
GI: Soft, Nontender, Nondistended, Normal Bowel Sounds
Extremities: No Clubbing, Cyanosis, or Edema
Neuro: Nonfocal/Grossly Intact
Psych: Calm, Cooperative
Derm: No Visible lesions
Anticipated Discharge: Today
Subjective/Interval History
-
Date of Service: June 16, 2024
Reports feeling much better after having a bowel movement. Shortness of breath much improved, 75% better. Pleuritic chest pain also improved. No fever, no vomiting.
Objective Data
-
Labs:
Laboratory Results
06/16/24
06:08
WBC 13.7 H
Hgb 10.7 L
Hct 31.7 L
Plt Count 541 H
Sodium 142
Potassium 4.4
Chloride 104
Carbon Dioxide 22
BUN 29 H
Creatinine 0.8
Glucose 101 H
Calcium 9.2
Vital Signs:
Vital Signs
Temp Pulse Resp BP Pulse Ox
97.9 F 78 18 120/63 94
06/16/24 03:29 06/16/24 08:12 06/16/24 08:12 06/16/24 03:29 06/16/24 08:12
I&O
10/06/16/24 06/17/24
06:59 06:59 06:59
Intake Total 720 / 720 840 / 840
Balance 720 / 720 840 / 840
[2024-06-16 11:00] VITALS: BP 125/68
--- NOTE | 2024-06-16 11:56 | W.DCSUMMARY ---
Discharge Summary
Discharge Data
Date of Admission: 06/13/24
Date of Discharge: 06/16/24
-
Pending Results: No
Hospital Course
Discharge diagnosis:
Sepsis
Community-acquired pneumonia
Constipation
Paroxysmal atrial fibrillation with rapid ventricular response
Essential hypertension
Normocytic anemia
Thrombocytosis
Radiation-induced chronic obstructive pulmonary disease
Type 2 diabetes
Hypothyroidism
Hyperlipidemia
Chest x-ray:
Low lung volumes.
Pulmonary vascularity at least top normal.
Large hiatal hernia again seen.
Some suspected bibasilar opacification, left greater than right which could represent subsegmental atelectasis and/or pneumonia and small pleural effusions.
Hospital course:
68-year-old female with a past medical history of recently diagnosed atrial fibrillation on Eliquis, hypertension, hyperlipidemia, hypothyroidism, and type 2 diabetes was admitted for sepsis secondary to community-acquired pneumonia. Patient was
treated with Rocephin and doxycycline.
Patient's hospital course was complicated by atrial fibrillation with rapid ventricular response. She was recently diagnosed with atrial fibrillation last week. She was continued on her diltiazem 180 mg daily, and started on metoprolol to tartrate
50 mg twice daily. Patient's heart rate became controlled. Her metoprolol was changed to Toprol XL 50 mg daily, she will continue this upon discharge. Since she was started on metoprolol, her lisinopril dose was reduced from 40 mg every afternoon
to 20 mg every afternoon.
Patient reported constipation. She was treated with an aggressive bowel regimen, and this resolved.
Patient felt better as far as her cough and breathing. She is medically stable for discharge on cefdinir to complete a 7-day course. She needs to follow-up with her primary care doctor in 1 week, and cardiology in the office in 2-3 weeks.
Disposition: Home self-care
Discharge planning: Required 39 minutes
Discharge Plan
-
Patient Disposition: Home (Routine Discharge)
Discharge Diagnosis/Procedures: Pneumonia, atrial fibrillation with rapid ventricular response, constipation
Condition: Good
Diet: Low Fat, Low Cholesterol and Diabetic, Carb Controlled
Activity: As tolerated
Driving Restrictions: As prior to admission
Activity Restrictions/Additional Instructions:
You were started on a new medication called metoprolol succinate to help control your heart rate.
Your lisinopril dose was reduced to 20 mg daily, you can take half of your 40 mg tablet.
Please follow-up with your PCP in 1 week, and cardiology in the office in 2-3 weeks.
Referrals:
Gi Gamez PA-C [Family Provider] - in one week
Prescriptions:
New
doxycycline hyclate 100 mg Capsule
100 mg PO Q12 4 Days Qty: 8 0RF
metoprolol succinate 50 mg Tablet Extended Release 24 Hr
50 mg PO DAILY Qty: 30 0RF
guaifenesin 600 mg Tablet Extended Release 12hr
600 mg PO Q12 Qty: 28 0RF
cefdinir 300 mg capsule
300 mg PO BID 4 Days Qty: 8 0RF
Continued
metformin 500 MG tablet
500 mg PO DAILY
omega 5-yva-gzd-fish oil 1 EACH capsule
1 ea PO BID
glipizide 5 mg Tablet Extended Release 24hr
5 mg PO DAILY
levothyroxine [Synthroid] 75 mcg Tablet
75 mcg PO DAILY
albuterol sulfate 90 mcg/actuation Hfa Aerosol Inhaler
2 inh INHALATION R Q6HPRN PRN (Reason: SOB)
rosuvastatin [Crestor] 5 mg Tablet
5 mg PO DAILY
Breztri Aerosphere 160-9-4.8 mcg/actuation Hfa Aerosol Inhaler
2 inh INHALATION BID
Patient Comments:
PATIENT HAS FREE SAMPLE
therapeutic multivitamin Tablet
1 tab PO DAILY
acetaminophen [Tylenol] 325 mg Tablet
650 mg PO DAILYPRN PRN (Reason: mild pain)
polyethylene glycol 3350 [Miralax] 17 gram Powder In Packet
17 g PO DAILYPRN PRN (Reason: constipation)
Excedrin Extra Strength 250-250-65 mg Tablet
1 tab PO DAILYPRN PRN (Reason: headache)
Eliquis 5 mg tablet
5 mg PO BID
diltiazem HCl 180 mg capsule,extended release 24hr
180 mg PO DAILY
Changed
lisinopril 40 MG tablet
20 mg PO QPM Qty: 0 0RF
Discharge Orders:
Discharge Patient (As Directed); Ordered 06/16/24
Ordered By: Bill Casarez
Discharge Date and Time
Discharge Date/Time: 06/16/24 16:06
Print Language: KINYARWANDA
[2024-06-16 11:59] LABS: Glucose - Point of Care 146 mg/dl (70-99)
[2024-06-16] MEDS: ROCEPHIN 1000 MG IV (12:32)
[2024-06-16] MEDS: STERILE WATER FOR INJECTION 10 ML IV (12:33)
[2024-06-16] MEDS: TOPROL XL 50 MG PO (13:34)
--- NOTE | 2024-06-16 15:11 | CM ---
CM reviewed chart, patient for discharge today, home with no needs. CM will continue to follow for all discharge planning needs.
Plan; home no needs.
== END 2024-06-16 16:06 | disposition home or self-care (01) | DRG 871 ==
LOC: 4 WEST ACU 13:22
PROVIDERS: ADMITTING PHYSICIAN Family Medicine; EMERGENCY PHYSICIAN Emergency Medicine; FAMILY PHYSICIAN Physician Assistant
DX: A41.9 Sepsis, unspecified organism (principal); J18.9 Pneumonia, unspecified organism; J70.1 Chronic and other pulmonary manifestations due to radiation; Z11.52 Encounter for screening for COVID-19; I48.0 Paroxysmal atrial fibrillation; D75.839 Thrombocytosis, unspecified; E11.9 Type 2 diabetes mellitus without complications; K59.00 Constipation, unspecified; I10 Essential (primary) hypertension; E03.9 Hypothyroidism, unspecified; E78.00 Pure hypercholesterolemia, unspecified; D64.9 Anemia, unspecified
CPT/HCPCS: 71046; 80048; 80053; 82607; 82728; 82746; 82962; 83036; 83540; 83550; 83735; 83880; 84145; 84484; 85025; 85027; 87040; 87449; 87502; 87811; 87899; 93005; 94640; 96365; 99285

== ENCOUNTER → 2024-07-13 09:42 | Outpatient (REF) | payer OTHER, SELFPAY | LOC: HWRAD 09:42 | DX: J45.31 Mild persistent asthma with (acute) exacerbation (principal); Z87.01 Personal history of pneumonia (recurrent) | CPT/HCPCS: 71046 ==

== ENCOUNTER → 2024-08-17 07:36 | Outpatient (REF) | payer OTHER, SELFPAY | LOC: HWWDC 07:36 | PROVIDERS: ATTENDING PHYSICIAN Nurse Practitioner Family; FAMILY PHYSICIAN Physician Assistant | DX: Z12.31 Encounter for screening mammogram for malignant neoplasm of breast (principal) | CPT/HCPCS: 77063; 77067 ==

== ENCOUNTER → 2024-09-04 07:06 | Outpatient (REF) | payer OTHER, SELFPAY | LOC: HWRCS 07:06 | PROVIDERS: ATTENDING PHYSICIAN Nurse Practitioner | DX: Z86.79 Personal history of other diseases of the circulatory system (principal) | CPT/HCPCS: 93306 ==

== ENCOUNTER → 2025-01-08 07:29 | Outpatient (REF) | payer OTHER, SELFPAY | LOC: HWRAD 07:29 | PROVIDERS: ATTENDING PHYSICIAN Physician Assistant | DX: Z13.820 Encounter for screening for osteoporosis (principal) | CPT/HCPCS: 77080 ==

== ENCOUNTER 2025-01-10 09:15 | Emergency (ER) | payer OTHER, SELFPAY ==
[2025-01-10] VITALS (7 sets, daily range): BP systolic 132–159; BP diastolic 62–85; BMI 29.7
--- NOTE | 2025-01-10 10:26 | ED.GENMED ---
History of Present Illness
General
Chief Complaint: Chest Pain
Source: patient
Exam Limitations: none
Time Seen by Provider: 01/10/25 09:55
Nursing documentation reviewed up to this point in time: agreed with
History of Present Illness
History of Present Illness:
69-year-old female with past medical history of hypertension, hyperlipidemia, atrial fibrillation on Eliquis, COPD, diabetes, breast cancer history who presents to the emergency room for evaluation of chest pains. Patient reports onset of symptoms
2 days ago and they have been intermittent since that time�typically last for about an hour at a time. She describes sharp pain in the left chest radiates towards the left scapula. She notices that it seems to be worse when she lays on her side
and better when she lays on her back; she also reports somewhat worse with breathing. No other clear triggers or relieving factors noted, no exertional component noted. She reports mild associated shortness of breath. No nausea, vomiting,
diaphoresis. No abdominal pains. No cough or fevers recently. No swelling or pain in the legs. She denies having had similar symptoms in the past. She does wear an [employer] Watch and says that she has not noticed any episodes of A-fib. She notes
that today she checked her blood pressure in the midst of 1 of these episodes and noted that it was quite elevated. She notes that 3 weeks ago her dose of metoprolol was decreased due to feeling of fatigue.
Past History
Past History
ED Past Medical History: Other (A-fib, diabetes, hypertension, COPD, hypothyroidism)
ED Past Surgical History: Other (Lumpectomy, hernia)
Social History
Tobacco: Non-smoker
Alcohol: None
Drug: None
Personal:
Living: with family
Employment: Employed
Review of Systems
Review of Systems
All Other Systems: ROS reviewed and negative except as documented in HPI and ROS
Respiratory: Reports trouble breathing
Cardiac: Reports chest pain; Denies diaphoresis or palpitations
ABD/GI: Denies abdominal pain, nausea or vomiting
: Denies flank pain
Musculoskeletal: Reports back pain; Denies neck pain
Neurological: Denies dizzy or headache
Phy Exam
Physical Exam
Physical Exam:
General: Awake, alert, no acute distress
Head: Normocephalic, atraumatic
Eyes: Conjunctiva normal, sclera anicteric
Throat: Airway intact, handling secretions
Neck: Trachea midline, supple without meningismus
Lungs: Clear to auscultation bilaterally, no wheezing, rales, rhonchi
Heart: Regular rate and rhythm, no murmurs, gallops, or rubs
Abd: Soft, non distended, nontender
Back: Mild tenderness medial left scapula and mid trapezius region
Neuro: No gross deficits
Skin: no rash in area of concern
Extremities: No edema in extremities, no calf tenderness, equal pulses in all extremities
Scores
Heart Failure Risk
Heart Failure Risk Score: Not Applicable
Heart Score for Chest Pain Patients
STEMI patient?: No
History: Slightly or Non-Suspicious
ECG: Normal
Age: >/= 65 years
Risk Factors: >/= 3 Risk Factors or History of CAD
Troponin: </= Normal Limit
Heart Score for Chest Pain Patients: 4
Heart Score Risk: 20.3% MACE over next 6 weeks
PE Wells Score
Symptoms of DVT: No
No alternative diagnosis better explains the illness: No
Tachycardia with pulse > 100: No
Immobilization (>=3 days) or surgery within previous 4 weeks: No
Prior history of DVT or pulmonary embolism: No
Presence of hemoptysis: No
Presence of malignancy: Yes
Pulmonary Embolism Risk Score: 1
Probability of PE: Pt is low risk
Withdrawal Assessment of Alcohol
Withdrawal Assessment Completed?: Not applicable
Course
Orders/Labs/Results
Orders:
Orders
01/10/25 09:16
ECG [Electrocardiogram (*1)] Urgent
Reason for Study: Chest Pain
EKG- Treatment ONCE
01/10/25 09:56
CR Chest - 2 Views Urgent
Comment:
Reason For Exam: cp
01/10/25 10:28
Complete Blood Count/With Diff Urgent
Comprehensive Metabolic Panel Urgent
D-Dimer Urgent
Lipase Urgent
Troponin I Urgent
01/10/25 11:11
CT Chest PE Study Urgent
Comment:
Reason For Exam: chest pain, +dimer
01/10/25 13:14
EKG- Treatment ONCE
01/10/25 13:15
Electrocardiogram (*1) Urgent
Reason for Study: Chest Pain
Troponin I Urgent
Abnormal Lab Results
01/10/25
10:28
WBC 10.9 H 10^3/uL
(4.8-10.8)
RBC 3.91 L 10^6/uL
(4.20-5.40)
Hct 35.8 L %
(37.0-47.0)
Abs Immat Gran (auto) 0.1 H 10^3/uL
(0-0.05)
Absolute Neuts (auto) 8.7 H 10^3/uL
(1.4-6.5)
Absolute Monos (auto) 0.7 H 10^3/uL
(0.1-0.6)
Neutrophils % 79.1 H %
(42.2-75.2)
Lymphocytes % 13.0 L %
(20.5-51.1)
D-Dimer 0.88 H ug/mlFEU
(0.00-0.50)
Glucose 218 H mg/dl
(70-99)
01/10/25 10:28
01/10/25 10:28
Vital Signs
Initial and Last Documented VS:
Initial Vital Signs
Temp Pulse Resp BP Pulse Ox
36.5 C 84 16 159/74 97
01/10/25 09:21 01/10/25 09:21 01/10/25 09:21 01/10/25 09:21 01/10/25 09:21
Last Documented Vital Signs
Temp Pulse Resp BP Pulse Ox
36.5 C 72 22 148/85 95
01/10/25 09:21 01/10/25 14:00 01/10/25 14:00 01/10/25 14:00 01/10/25 10:43
MDM/Problems Addressed
Differential Diagnosis Includes:
Costochondritis, GERD, pneumothorax, angina/ACS, pancreatitis, PE (less likely with patient on Eliquis), symptomatic A-fib/dysrhythmia
MDM/Problems Addressed:
69-year-old female presents for evaluation of episodic atypical pain in the chest and scapular region. Intermittent for the past 3 days�no exertional component. Associated with hypertension today. She was hypertensive in triage at 159/74,
normalized by my assessment. Rest of vitals normal. Physical exam as above. EKG shows sinus rhythm with no STEMI. Plan to place an IV check labs including CBC and CMP, lipase, troponin, D-dimer. Will check chest x-ray. Monitor closely reassess
after the above.
Labs reviewed: CBC shows marginal leukocytosis, CMP no clinically significant abnormalities�random glucose 218 in the setting of known diabetes. Troponin negative. Chest x-ray shows no acute disease. D-dimer was slightly elevated at 0.88�will
follow-up with CT chest to rule out PE.
CT negative for pulmonary embolism, showed only trace pericardial effusion; she does have a large hiatal hernia. Repeat troponin undetectable. Clinical reassessment patient's vital signs are stable. At this point very low suspicion for emergent
pathology; could be costochondritis or pericarditis. I think she is stable for discharge can follow-up with primary doctor as an outpatient. Provided copy of CT report for patient to follow-up on with primary. She feels very comfortable with this
plan. Spoke about return precautions all questions answered.
Chronic conditions affecting care:
Hypertension, hyperlipidemia, atrial fibrillation
Acute Exacerbation and/or Progression of Chronic Illness:
Acutely hypertensive resolved without intervention continue to monitor but no additional interventions indicated at this point
Acute Exacerbation and/or Progression of Chronic Illness: HTN
*Radiology
Radiology exam reviewed: preliminary read by ED provider and radiology read reviewed
*Pulse Oximetry
Patient hypoxic: no
*EKG
Interpreted by ED Provider?: Yes
Heart Rate: 81
Rate: normal
Rhythm: sinus
[place]: normal axis
Interval: normal interval
QRS Pattern: normal QRS
Ischemia: other (Nonspecific T wave abnormality)
*Critical Care Note
Total Time (30-74mins, 75-104mins- exclusive of procedures): Not Applicable
Data Reviewed
Source: patient and records
ED Attending Note
-
Portions of this chart may have been created with voice recognition software.� Occasional wrong word or��sound alike� substitutions may have occurred due to the inherent limitations of voice recognition software.
Discharge Plan
Departure
Patient Disposition: Home (Routine Discharge)
Date of Disposition: 01/10/25
Time of Disposition: 14:21
Patient with high blood pressure during this ER visit?: Yes
Discharge Problem:
Chest pain, Hypertension
Instructions: Chest Pain PCP Follow Up, BLOOD PRESSURE
Prescriptions:
No Action
metformin 500 MG tablet
500 mg PO DAILY
glipizide 5 mg Tablet Extended Release 24hr
5 mg PO DAILY
levothyroxine [Synthroid] 75 mcg Tablet
75 mcg PO DAILY
rosuvastatin [Crestor] 5 mg Tablet
5 mg PO DAILY
acetaminophen [Tylenol] 325 mg Tablet
650 mg PO DAILYPRN PRN (Reason: mild pain)
Excedrin Extra Strength 250-250-65 mg Tablet
1 tab PO DAILYPRN PRN (Reason: headache)
Eliquis 5 mg tablet
5 mg PO BID
diltiazem HCl 180 mg capsule,extended release 24hr
180 mg PO DAILY
lisinopril 40 MG tablet
20 mg PO QPM Qty: 0 0RF
metoprolol succinate 50 mg tablet extended release 24 hr
25 mg PO DAILY
Referrals:
Gi Gamez PA-C [Family Provider] - Follow up in 5-7 days
Activity Restrictions/Additional Instructions:
Thank you for visiting the Emergency Department at [facility].
1. Please schedule a follow up appointment as directed. Call first thing tomorrow morning to make an appointment.
2. If indicated, please take your medications as instructed and indicated on discharge paperwork.
3. If any of your symptoms do not improve, or persist, or become more severe within 6-12 hours, please return to the emergency department for further care.
4. Please return to the emergency department if you develop a headache, neck pain/stiffness, fever greater than 100.4F, chest pain, shortness of breath, persistent nausea, vomiting, slurred speech, difficulty walking, numbness/tingling, weakness,
signs of infection or any other symptoms that are worrisome to you.
Please call [phone] if you have any questions.
Interventions
Interventions:
*Risk Screen - Suicide Last Done: 01/10/25 09:59
*General Assessment Last Done: 01/10/25 10:42
*Neglect/Abuse Screening Last Done: 01/10/25 09:59
*ED- Fall Risk Assessment Last Done: 01/10/25 10:42
*ED COVID-19 Vaccine History Last Done: 01/10/25 10:42
ED- Cardiac Assessment Last Done: 01/10/25 09:59
Discharge Date and Time
Print Language: JORDANIAN
[2025-01-10 10:35] LABS: % Basophils 0.4 % (0-2); % Eosinophils 0.4 % (0-6); % Immature Granulocytes 0.5 % (0-0.5); % Monocytes 6.6 % (1.7-9.3); % Neutrophils 79.1 % (42.2-75.2); Absolute Immature Granulocytes 0.1 10^3/uL (0-0.05); Absolute Lymphocytes 1.4 10^3/uL (1.2-3.4); Absolute Monocytes 0.7 10^3/uL (0.1-0.6); Absolute Neutrophils 8.7 10^3/uL (1.4-6.5); Hematocrit 35.8 % (37.0-47.0); Hemoglobin 12.1 g/dL (12.0-16.0); Mean Corp Hgb Conc. 33.8 g/dL (33.0-37.0); Mean Corpuscular Hgb 30.9 pg (27.0-31.0); Mean Corpuscular Volume 91.6 fL (81.0-99.0); Mean Platelet Volume 9.3 fL (7.4-10.4); Nucleated Red Blood Cells % 0 %; Platelet Count 318 10^3/uL (130-400); Red Blood Cell Count 3.91 10^6/uL (4.20-5.40); Red Cell Dist. Width 13.8 % (11.5-14.5); White Blood Cell Count 10.9 10^3/uL (4.8-10.8)
[2025-01-10 10:49] LABS: ALT (SGPT) 14 U/L (0-35); AST (SGOT) 18 U/L (14-36); Albumin 3.9 g/dl (3.5-5.0); Alkaline Phosphatase 93 U/L (38-126); Blood Urea Nitrogen 11 mg/dl (7-17); Calcium 9.4 mg/dl (8.4-10.2); Carbon Dioxide 24 mmol/L (22-30); Chloride 107 mmol/L (98-107); Estimated Creatinine Clearance 67 ml/min; Glucose 218 mg/dl (70-99); Lipase 50 U/L (23-300); Potassium 4.1 mmol/L (3.5-5.1); Sodium 138 mmol/L (135-145); Total Bilirubin 0.9 mg/dl (0.2-1.3); Total Protein 6.7 g/dl (6.3-8.2); eGFR > 60.00
[2025-01-10 11:00] LABS: Troponin I < 0.012 ng/ml
[2025-01-10 11:01] LABS: D-Dimer 0.88 ug/mlFEU (0.00-0.50)
[2025-01-10 13:45] LABS: Troponin I < 0.012 ng/ml
== END 2025-01-10 14:46 | disposition home or self-care (01) ==
LOC: EMR 09:15
PROVIDERS: EMERGENCY PHYSICIAN Emergency Medicine; FAMILY PHYSICIAN Physician Assistant
DX: R07.89 Other chest pain (principal); I10 Essential (primary) hypertension; E78.5 Hyperlipidemia, unspecified; I48.91 Unspecified atrial fibrillation; Z79.01 Long term (current) use of anticoagulants; J44.9 Chronic obstructive pulmonary disease, unspecified; E11.9 Type 2 diabetes mellitus without complications
CPT/HCPCS: 99285; 71046; 71275; 80053; 83690; 84484; 85025; 85379; 93005; Q9967

== ENCOUNTER → 2025-07-24 07:51 | Outpatient (REF) | payer OTHER, SELFPAY | LOC: RCS 07:51 | PROVIDERS: ATTENDING PHYSICIAN Internal Medicine Cardiovascular Disease; FAMILY PHYSICIAN Physician Assistant | DX: I48.0 Paroxysmal atrial fibrillation (principal) | CPT/HCPCS: 93225; 93226 ==